=== PATIENT | male | born 1975 | race Caucasian/White ===

== ENCOUNTER 2019-03-25 11:46 | Inpatient (IN) ==
[2019-03-25 12:36] LABS: Basophils # (auto) 0.22 K/uL (0-0.2); Basophils % (auto) 2.1 %; Eosinophils # (auto) 1.61 K/uL (0-0.5); Eosinophils % (auto) 15.2 %; Hematocrit (blood only) 36.1 % (42-52); Immature Granulocytes # (auto) 0.04 K/uL (0.00-0.02); Immature Granulocytes % (auto) 0.4 %; Lymphocytes # (auto) 1.07 K/uL (1.2-3.4); Lymphocytes % (auto) 10.1 %; Mean Corpuscular Hemoglobin 31.6 pg (25-34); Mean Corpuscular Hgb Conc 30.5 g/dL (32-36); Mean Corpuscular Volume 103.7 fL (80-100); Mean Platelet Volume 10.1 fL (7.4-10.4); Monocytes # (auto) 0.61 K/uL (0.11-0.59); Monocytes % (auto) 5.8 %; Neutrophils # (auto) 7.04 K/uL (1.4-6.5); Neutrophils % (auto) 66.4 %; Platelet Count 616 K/uL (130-400); RDW Coefficient of Variation 17.5 % (11.5-14.5); RDW Standard Deviation 64.9 fL (36.4-46.3); Red Blood Count 3.48 M/uL (4.7-6.1); White Blood Count 10.59 K/uL (4.8-10.8)
--- NOTE | 2019-03-25 12:58 | CT Scan Report ---
HEAD CT NONCONTRAST CT DOSE: 537.48 mGy.cm HISTORY: Stroke symptoms following catheterization. TECHNIQUE: Multiaxial CT images of the head were performed without the use of intravenous contrast. A utomated exposure control was utilized for this study. A dose lowering technique was utilized adheri ng to the principles of ALARA. Comparison: None. Findings: The paranasal sinuses and mastoid air cells are clear. The calvarium and skull base are int act. There is no mass, hematoma, or midline shift. The ventricles and sulci are within normal limits. A 9 mm hypodense focus within the periventricular white matter of the left frontal lobe best seen on image 17. This could be due to a focus of demyelination, microvascular ischemic change, or a subacut e to chronic infarct. No acute infarct identified. Impression: 1. No acute intracranial abnormality. 2. A 9 mm hypodense focus within the periventricular white matter of the left frontal lobe. This coul d be due to a focus of demyelination, microvascular ischemic change, or a subacute to chronic infarct . ACT 112: Negative or not required by law. Electronically signed by: Kvng Glass M.D. 03/25/2019 12:56 PM
[2019-03-25 13:14] LABS: Alanine Aminotransferase 113 U/L (12-78); Albumin Globulin Ratio 0.7 (0.9-2); Albumin Level 3.3 gm/dl (3.4-5.0); Alkaline Phosphatase 98 U/L (45-117); Aspartate Aminotransferase 96 U/L (15-37); BUN Creatinine Ratio 4.1 (10-20); Bilirubin,Total 0.4 mg/dl (0.2-1); Blood Urea Nitrogen 64 mg/dl (7-18); Calcium 10.1 mg/dl (8.5-10.1); Carbon Dioxide 26 mmol/L (21-32); Chloride 93 mmol/L (98-107); Est GFR (African American) 3.7; Est GFR (Non-African American) 3.2; Globulin 4.5 gm/dl (2.5-4.0); Glucose 171 mg/dl (70-99); Potassium 4.4 mmol/L (3.5-5.1); Sodium 135 mmol/L (136-145); Total Protein 7.8 gm/dl (6.4-8.2)
--- NOTE | 2019-03-25 13:26 | XRay Report ---
XR femur RT 2V routine CLINICAL HISTORY: Right femur pain. COMPARISON: None FINDINGS: No fracture or osseous lesion within the right femur is noted. Alignment of the right hip and knee is anatomic. There is extensive vascular calcification. IMPRESSION: 1. No osseous abnormality of the right femur. 2. Extensive vascular calcification. ACT 112: Negative or not required by law. Electronically signed by: Eber Miranda M.D. 03/25/2019 1:25 PM
--- NOTE | 2019-03-25 13:49 | Ultrasound Report ---
RIGHT LOWER EXTREMITY VENOUS DOPPLER HISTORY: Right leg pain and swelling. COMPARISON STUDY: None. FINDINGS: There is normal compressibility, flow, and augmentation within the right lower extremity de ep venous system. IMPRESSION: No DVT within the right lower extremity ACT 112: Negative or not required by law. Electronically signed by: Kvng Glass M.D. 03/25/2019 1:48 PM
[2019-03-25] MEDS ORDERED: NovoLIN-R INSULIN PER UNIT CHARGE IV STA (14:10)
--- NOTE | 2019-03-25 15:38 | Electrocardiogram Report ---
Test Reason : Blood Pressure : / mmHG Vent. Rate : 095 BPM Atrial Rate : 095 BPM P-R Int : 130 ms QRS Dur : 090 ms QT Int : 376 ms P-R-T Axes : 064 030 017 degrees QTc Int : 472 ms Normal sinus rhythm Normal ECG No previous ECGs available Confirmed by Dalton Cunningham ([id number]) on 03/25/2019 3:38:06 PM Referred By: REFERRED SELF Confirmed By:Dalton Cunningham
--- NOTE | 2019-03-25 17:41 | Emergency Department Note ---
Entered by Mayra Hoffmann acting as a scribe for History of Present Illness General Chief complaint: Leg Weakness, Bilateral Stated complaint: LEGS DON'T WORK Source: patient History of Present Illness Provider complaint: right leg weakness Onset (ago): week(s) 2 Location: lower extremity and right Radiation: extremity (lower extremity) Maximum Pain Intensity: 10 Quality: + other (right leg weakness) Associated symptoms: + other (Negative rhinorrhea; Negative back pain; Negative abdominal pain; ); no chest pain, no cough and no nausea/vomiting Treatments prior to arrival: none The patient, who is a 44 year old male with a medical history of hypertension, hyperkalemia, and COPD presents to the Emergency Room with complaints of right leg pain that started two weeks ago. The patient explains that he was transferred to [facility] in [place] for a heart Catheterization through the groin. The patient states that after the procedure the patient is unable to fully utilize his right leg. The patient expresses that he was able to walk normally before the procedure. The patient confirms that he has pain in his right leg that radiates throughout the right lower extremity. The patient denies cough, rhinorrhea, chest pain, back pain, abdominal pain, nausea, vomiting, and diarrhea. The patient relays that he has not followed up with an intravenous physician. Upon review of his chart showed that he had pericarditis and some CAD but nothing which was causing EKG changes. Echo also showed a mitral valve vegetation. Home Medications Home Medications Medication Instructions Recorded Confirmed Type albuterol sulfate 90 mcg/actuation 2 puffs INH Q6H PRN #18 gm 03/21/19 03/25/19 Rx aerosol inhaler albuterol sulfate 90 mcg/actuation 2 puffs INH Q6H PRN #18 gm 03/21/19 03/25/19 Rx aerosol inhaler atorvastatin 80 mg tablet 80 mg PO DAILY #90 tab 03/21/19 03/25/19 Rx blood sugar diagnostic #300 ea 03/21/19 03/25/19 Rx cinacalcet 30 mg tablet 30 mg PO DAILY #90 tab 03/21/19 03/25/19 Rx diltiazem HCl 360 mg capsule,24 360 mg PO DAILY #90 cap 03/21/19 03/25/19 Rx hr,extended release docusate sodium 100 mg capsule 100 mg PO DAILY #30 cap 03/21/19 03/25/19 Rx esomeprazole magnesium 40 mg 40 mg PO DAILY #90 cap 03/21/19 03/25/19 Rx capsule,delayed release fluticasone propionate 50 2 sprays INTNAS DAILY #54.6 ml 03/21/19 03/25/19 Rx mcg/actuation nasal spray,suspension furosemide 40 mg tablet 40 mg PO DAILY #90 tab 03/21/19 03/25/19 Rx hydralazine 50 mg tablet 50 mg PO BID #180 tab 03/21/19 03/25/19 Rx insulin aspart U-100 100 unit/mL 50 units SQ BID #15 ml 03/21/19 03/25/19 Rx (3 mL) subcutaneous pen lancets 33 gauge #300 ea 03/21/19 03/25/19 Rx levothyroxine 125 mcg capsule 125 mcg PO DAILY #90 cap 03/21/19 03/25/19 Rx pen needle, diabetic 32 gauge x #200 ea 03/21/19 03/25/19 Rx 1/" vitamin B comp and C no.3 15 mg-10 1 cap PO DAILY #30 cap 03/21/19 03/25/19 Rx mg-50 mg-5 mg-300 mg capsule zolpidem 5 mg tablet 5 mg PO HS #90 tab 03/21/19 03/25/19 Rx cephalexin 500 mg PO DIRECTED 03/25/19 03/25/19 History trazodone 50 mg PO HS PRN 03/25/19 03/25/19 History Allergies Allergy/AdvReac Type Severity Reaction Status Date / Time acetaminophen [From Percocet] Allergy Verified 03/25/19 13:01 codeine Allergy Verified 03/25/19 13:01 gemfibrozil [From Lopid] Allergy Verified 03/25/19 13:01 ibuprofen Allergy Verified 03/25/19 13:01 isosorbide Allergy Verified 03/25/19 13:01 lisinopril Allergy Verified 03/25/19 13:01 oxycodone [From Percocet] Allergy Verified 03/25/19 13:01 Penicillins Allergy Unknown Unverified 03/25/19 13:01 Past Med/Surg History Medical History Acute idiopathic pericarditis Charcot foot due to diabetes mellitus COPD (chronic obstructive pulmonary disease) Diabetic neuropathy Dyslipidemia ESRD (end stage renal disease) on dialysis GERD (gastroesophageal reflux disease) Hyperkalemia Hyperparathyroidism Hypertension Hypothyroidism Peritoneal dialysis status Type 2 diabetes mellitus Surgical History History of cardiac cath Injection of surface of eye Retinal detachment Family History Father Alcohol abuse Diabetes Mother Diabetes Heart disease Social History Preferred Language: Qatari Communication Ability: Effective Seed Pelleter Required: No Beliefs That Will Affect Care: None Current Living Situation: Significant Other Other Information That Helps Us Care for You: No Feels Safe at Home: Yes Safety Concerns: Feels Safe At This Time Smoking Status: Never smoker Hx Alcohol Use: No Hx Substance Use: No Review of Systems See HPI for pertinent positives & negatives. and A total of 10 systems reviewed and were otherwise negative Physical Exam Vital Signs Vital Signs - 24 hr 03/25/19 11:50 03/25/19 12:50 03/25/19 14:00 Temperature 36.8 C Temperature Source Oral Pulse Rate 77 Pulse Rate [Apical] 93 H 90 Pulse Rhythm Regular Pulse Rhythm [Apical] Regular Regular Pulse Strength Normal Pulse Strength [Apical] Normal Respiratory Rate 16 17 18 Respiratory Effort / Characteristics Non-Labored Non-Labored Spontaneous Non-Labored Spontaneous Respiratory Depth Normal Normal Normal Respiratory Pattern Regular Regular Regular Blood Pressure 98/63 L Blood Pressure [Right Arm] 91/63 L 95/76 L Blood Pressure Mean 74 Blood Pressure Mean [Right Arm] 72 82 Blood Pressure Position Sitting Pulse Oximetry 100 99 98 Oxygen Delivery Method Room Air Room Air Room Air Sepsis Recent Fever Within 48 Hours No Sepsis Action Taken by Nursing No Action Required 03/25/19 16:03 Temperature Temperature Source Pulse Rate Pulse Rate [Apical] 90 Pulse Rhythm Pulse Rhythm [Apical] Pulse Strength Pulse Strength [Apical] Respiratory Rate 18 Respiratory Effort / Characteristics Respiratory Depth Respiratory Pattern Blood Pressure Blood Pressure [Right Arm] 94/57 L Blood Pressure Mean Blood Pressure Mean [Right Arm] 69 Blood Pressure Position Pulse Oximetry 95 Oxygen Delivery Method Sepsis Recent Fever Within 48 Hours Sepsis Action Taken by Nursing GENERAL: alert, well appearing, well nourished, no distress, non-toxic, sitting up in bed wearing hospital gown EYE EXAM: normal conjunctiva OROPHARYNX: no exudate, no erythema, lips, buccal mucosa, and tongue normal and mucous membranes are moist NECK: supple, no nuchal rigidity, no adenopathy, non-tender LUNGS: Clear to auscultation. Normal chest wall mechanics HEART: no murmurs, S1 normal and S2 normal ABDOMEN: abdomen soft, non-tender, normo-active bowel sounds, no masses, no rebound or guarding. PD catheter in left lower quadrant. BACK: Back is symmetrical on inspection and there is no deformity, no midline tenderness, no CVA tenderness. SKIN: no rashes and no bruising UPPER EXTREMITIES: upper extremities are grossly normal. LOWER EXTREMITIES: No pitting edema. Flexion and extension of the hips bilaterally and left lower extremity. Minimal flexion and extension of the right knee 2/5. Right ankle and EHL 1/5. No petallar reflexes. NEURO EXAM: Normal sensorium, cranial nerves II-XII grossly intact, normal speech, no gross weakness of arms, no gross weakness of legs. Course Course ED COURSE: Vital signs were reviewed and showed hypotensive The patients medical record was reviewed The above diagnostic studies were performed and reviewed. ED treatments and interventions as stated above. 1203: The patient was evaluated in room C1. A complete history and physical examination was performed. 1401: Upon reevaluation, the patient is resting.I discussed my findings with the patient and he understands and agrees with the treatment plan. 1407: I reviewed the patient's case with Dr. Bernal, [facility] Hospitalist. He will evaluate the patient for further management. Based on the patients age, coexisting illnesses, exam and lab findings the decision to treat as an inpatient was made. The patient remained stable while under my care. The patient will be evaluated for further management. Consultations Consultation #1: I reviewed the patient's case with Dr. Bernal, [facility] Hospitalist. He will evaluate the patient for further management. Time: 14:10 Administered Medications Discontinued Medications Insulin Human Regular (Novolin R U-100 Per Unit) 5 units IV NOW STA Stop: 03/25/19 14:11 Last Admin: 03/25/19 14:21 Dose: Not Given Documented by: [id number] Medical Decision Making Differential Diagnosis Differential Diagnosis includes but is not limited to ischemic Stroke, hemorrhagic stroke, bells palsy, mass, neoplasm, migraine headache, seizure, subarachnoid hemorrhage, TIA, and transient global amnesia. Medical Records Attestation: I reviewed the patient's medical records. Home Medications Current Medication List: was personally reviewed by me Laboratory Data Attestation: I reviewed the patient's lab results. Result diagrams: 03/25/19 12:30 03/25/19 12:30 Lab Results 03/25/19 03/25/19 03/25/19 Range/Units 12:30 12:30 14:17 WBC 10.59 (4.8-10.8) K/uL RBC 3.48 L (4.7-6.1) M/uL Hgb 11.0 L (14.0-18.0) g/dL Hct 36.1 L (42-52) % MCV 103.7 H (80-100) fL MCH 31.6 (25-34) pg MCHC 30.5 L (32-36) g/dL RDW Std Deviation 64.9 H (36.4-46.3) fL RDW Coeff of Geraldine 17.5 H (11.5-14.5) % Plt Count 616 H (130-400) K/uL MPV 10.1 (7.4-10.4) fL Immature Gran % (Auto) 0.4 % Neut % (Auto) 66.4 % Lymph % (Auto) 10.1 % [place] % (Auto) 5.8 % Eos % (Auto) 15.2 % Baso % (Auto) 2.1 % Immature Gran # (Auto) 0.04 H (0.00-0.02) K/uL Neut # (Auto) 7.04 H (1.4-6.5) K/uL Lymph # (Auto) 1.07 L (1.2-3.4) K/uL [place] # (Auto) 0.61 H (0.11-0.59) K/uL Eos # (Auto) 1.61 H (0-0.5) K/uL Baso # (Auto) 0.22 H (0-0.2) K/uL Sodium 135 L (136-145) mmol/L Potassium 4.4 (3.5-5.1) mmol/L Chloride 93 L (98-107) mmol/L Carbon Dioxide 26 (21-32) mmol/L Anion Gap 16.0 H (3-11) BUN 64 H (7-18) mg/dl Creatinine 15.80 H* (0.6-1.4) mg/dl Est Cr Clr Drug Dosing Not Reportable Est GFR ( Amer) 3.7 Est GFR (Non-Af Amer) 3.2 BUN/Creatinine Ratio 4.1 L (10-20) Glucose 171 H (70-99) mg/dl POC Glucose 202 H (70-99) Calcium 10.1 (8.5-10.1) mg/dl Total Bilirubin 0.4 (0.2-1) mg/dl AST 96 H (15-37) U/L ALT 113 H (12-78) U/L Alkaline Phosphatase 98 (45-117) U/L Total Protein 7.8 (6.4-8.2) gm/dl Albumin 3.3 L (3.4-5.0) gm/dl Globulin 4.5 H (2.5-4.0) gm/dl Albumin/Globulin Ratio 0.7 L (0.9-2) Imaging Data Radiologist's Impression: Radiology results as stated below per my review and the radiologist's interpretation: XR femur RT 2V routine CLINICAL HISTORY: Right femur pain. COMPARISON: None FINDINGS: No fracture or osseous lesion within the right femur is noted. Alignment of the right hip and knee is anatomic. There is extensive vascular calcification. IMPRESSION: 1. No osseous abnormality of the right femur. 2. Extensive vascular calcification. ACT 112: Negative or not required by law. Electronically signed by: Eber Miranda M.D. 03/25/2019 1:25 PM RIGHT LOWER EXTREMITY VENOUS DOPPLER HISTORY: Right leg pain and swelling. COMPARISON STUDY: None. FINDINGS: There is normal compressibility, flow, and augmentation within the right lower extremity deep venous system. IMPRESSION: No DVT within the right lower extremity ACT 112: Negative or not required by law. Electronically signed by: Kvng Glass M.D. 03/25/2019 1:[address] NO NCONTRAST CT DOSE: 537.48 mGy.cm HISTORY: Stroke symptoms following catheterization. TECHNIQUE: Multiaxial CT images of the head were performed without the use of intravenous contrast. Automated exposure control was utilized for this study. A dose lowering technique was utilized adhering to the principles of ALARA. Comparison: None. Findings: The paranasal sinuses and mastoid air cells are clear. The calvarium and skull base are intact. There is no mass, hematoma, or midline shift. The ventricles and sulci are within normal limits. A 9 mm hypodense focus within the periventricular white matter of the left frontal lobe best seen on image 17. This could be due to a focus of demyelination, microvascular ischemic change, or a subacute to chronic infarct. No acute infarct identified. Impression: 1. No acute intracranial abnormality. 2. A 9 mm hypodense focus within the periventricular white matter of the left frontal lobe. This could be due to a focus of demyelination, microvascular ischemic change, or a subacute to chronic infarct. ACT 112: Negative or not required by law. Electronically signed by: Kvng Glass M.D. 03/25/2019 12:56 PM ECG Data Attestation: I personally reviewed and interpreted this ECG as follows: Blood Pressure Blood Pressure Findings: Low blood pressure Blood Pressure Disposition: further management by hospitalist MDM Narrative The patient, who is a 44 year old male with a medical history of hypertension, CKD on peritoneal dialysis, and COPD presents to the Emergency Room with complaints of right leg pain that started two weeks ago. IV was established blood work was obtained and showed a mild anemia at 11,000. No significant leukocytosis. INR unremarkable. BMP with creatinine of 15. Potassium and sodium are appropriate. Mild transaminitis at 113 and 96. Patient had no abdominal pain. All of his pain was located in the right groin where he still has a dressing placed from the previous catheterization. Does have weakness in the right lower extremity. Previous records were reviewed from [facility] which showed a mitral valve vegetation but reported negative cultures and she he was discharged. Patient notes he has had weakness in his right lower extremity since the catheterization. Question if this was embolic due to the mitral valve vegetation. CT head did show a left frontal infarct. With the weakness and questionable stroke did discuss case with the hospitalist. Duplex was negative. Patient was updated bedside. Impression & Plan CVA (cerebral vascular accident), Peritoneal dialysis status, Transaminitis, Mitral valve disorder Discharge Plan Visit Data Chief Complaint: Leg Weakness, Bilateral Stated Complaint: LEGS DON'T WORK ED Provider: Yung Bhandari Discharge Problem: CVA (cerebral vascular accident), Peritoneal dialysis status, Transaminitis, Mitral valve disorder Patient Disposition: Being Evaluated by Hospitalist Forms Stand Alone Forms: My [facility] Prescriptions Prescriptions: No Action albuterol sulfate 90 mcg/actuation HFA aerosol inhaler 2 puffs INH Q6H PRN (Reason: shortness of breath or wheezing) Qty: 18 RF: 11 fluticasone propionate [Flonase Allergy Relief] 50 mcg/actuation spray,suspension 2 sprays INTNAS DAILY Qty: 54.6 RF: 3 levothyroxine 125 mcg capsule 125 mcg PO DAILY Qty: 90 RF: 3 (DME) OneTouch Ultra Blue Test Strip strip See Rx Instructions .ROUTE .MEDSUPPLY Qty: 300 RF: 3 (DME) lancets [OneTouch Delica Plus Lancet] 33 gauge misc See Rx Instructions .ROUTE .MEDSUPPLY Qty: 300 RF: 3 diltiazem HCl 360 mg capsule,extended release 24 hr 360 mg PO DAILY Qty: 90 RF: 3 zolpidem 5 mg tablet 5 mg PO HS Qty: 90 RF: 3 Novolog Flexpen U-100 Insulin 100 unit/mL (3 mL) insulin pen 50 units SQ BID Qty: 15 RF: 11 furosemide 40 mg tablet 40 mg PO DAILY Qty: 90 RF: 3 cinacalcet [Sensipar] 30 mg tablet 30 mg PO DAILY Qty: 90 RF: 3 esomeprazole magnesium 40 mg capsule,delayed release(DR/EC) 40 mg PO DAILY Qty: 90 RF: 3 hydralazine 50 mg tablet 50 mg PO BID Qty: 180 RF: 3 atorvastatin 80 mg tablet 80 mg PO DAILY Qty: 90 RF: 3 B Complex Plus Vitamin C 64-42-98-5-300 mg capsule 1 cap PO DAILY Qty: 30 RF: 0 (DME) pen needle, diabetic [BD Ultra-Fine Micro Pen Needle] 32 gauge x 1/4" needle See Rx Instructions .ROUTE .MEDSUPPLY Qty: 200 RF: 3 albuterol sulfate [Ventolin HFA] 90 mcg/actuation HFA aerosol inhaler 2 puffs INH Q6H PRN (Reason: shortness of breath or wheezing) Qty: 18 RF: 11 docusate sodium [Colace] 100 mg capsule 100 mg PO DAILY Qty: 30 RF: 0 trazodone 50 mg Tablet 50 mg PO HS PRN (Reason: Sleep) RF: 0 cephalexin 500 mg capsule 500 mg PO DIRECTED RF: 0 Referrals Referrals: Hardy Au MD [Primary Care Provider] - Discharge Problem: CVA (cerebral vascular accident) Qualifiers: CVA mechanism: unspecified Qualified Code(s): I63.9 - Cerebral infarction, unspecified The scribe's documentation has been prepared under my direction and personally reviewed by me in its entirety. I confirm that the note above accurately reflects all work, treatment, procedures, and medical decision making performed by me.
[2019-03-25 17:51] LABS: INR 1.1 (0.9-1.1); Prothrombin Time 11.6 Seconds (9.0-12.0)
--- NOTE | 2019-03-25 18:03 | History & Physical Report ---
Date of Service March 25, 2019 Assessment & Plan (1) CVA (cerebral vascular accident): Admit to PCU on telemetry for acute stroke. Acute stroke was discovered on MRI of the brain; Case discussed with from stroke [facility]. His recommendation is as to follow: Follow the stroke pathway without TPA. Patient is outside of the TPA window. Clopidogrel 300 mg loading dose followed by 75 mg thereafter. Neurology consult in a.m. Monitor vital signs every 4 hours Monitor electrolytes and replenish. VIVIANE pending Further investigation in regard of septic versus autoimmune origin. Patient reports had having pericarditis of autoimmune origin. Continue atorvastatin 80 mg p.o. daily. CTA of the head and neck following peritoneal dialysis and clearing up the contrast. DVT prophylaxis Heparin 5000 units subcu every 12 hours. Started autoimmune work-up. Full code Present on Admission?: Yes (2) ESRD (end stage renal disease) on dialysis: Nephrology consult pending. Continue peritoneal dialysis as directed. Replenish electrolytes and monitor daily. Present on Admission?: Yes (3) Mitral valve disorder: Echocardiogram from [facility] significant for possible mitral valve vegetation. Recommended VIVIANE. Placed order for VIVIANE, consult cardiology upon result. Started autoimmune work-up because it is not clear if mitral valve vegetation is septic or caused by autoimmune mechanism. Ordered blood culturesx2 Present on Admission?: Yes (4) Hypertension: Blood pressure is on the lower side. Hold hydralazine 50 mg p.o. twice daily. Hold diltiazem 360 mg daily while blood pressure is at the lower side. Present on Admission?: Yes (5) COPD (chronic obstructive pulmonary disease): Stable ,continue albuterol inhaler 2 puffs every 6 hours as needed, fluticasone propionate nasal spray 2 sprays daily Present on Admission?: Yes (6) Dyslipidemia: Lipid panel pending. Continue atorvastatin 80 mg p.o. daily. Present on Admission?: Yes (7) Hypothyroidism: Continue levothyroxine 125 MCG's p.o. daily Present on Admission?: Yes (8) Type 2 diabetes mellitus: A1c pending. Accu-Cheks before meals and at bedtime. Continue sliding scale insulin and glycemic control per pharmacy. (9) Diabetic neuropathy: As the above Present on Admission?: Yes History of Present Illness Chief Complaint: Right leg weakness Primary Care Provider: Hardy Au MD Patient is a 44 years old male with past medical history of end-stage renal disease on peritoneal dialysis, GERD, acute idiopathic pericarditis, hypertension, COPD, dyslipidemia, hyperparathyroidism, diabetes mellitus type 2, diabetic neuropathy who presents to the emergency room with a complaint of right leg weakness that started after March 09 when patient was transferred to [facility] for a heart catheterization through the groin. The patient states that after the procedure he was unable to fully use his right leg. The patient expresses that he was able to walk normally before the procedure. The patient confirms that he has pain in his right leg and that pain radiates through the right lower extremity. Patient reports that he is feeling right now better than before and movements of his right lower extremities are not changed in the past 3 days. Per patient his last known bili being well was before March 09, 2019 when patient had catheterization of his heart through his right lower extremity. The patient denies fever, chills, chest pain, shortness of breath, abdominal pain, frequency, urgency, syncope or near syncope. Patient has end-stage renal disease and he does peritoneal dialysis 4 times a day for the past 4 years. EKG is reviewed which shows normal sinus rhythm. Echocardiogram from [facility] done March 08, 2019 shows LV ejection fraction of 60 to 64%. No LV segmental wall motion abnormalities. The right ventricular cavity is mildly dilated. The right ventricular systolic function is moderately reduced. There is a large 3 x 1 cm mobile echodensity attached to the mitral valve. It has the appearance of MAC but it is protuberant, mobile and there is severe mitral regurgitation present. This constellation could represent a vegetation. Recommended blood culture and a VIVIANE EEG to assess further. Moderate pulmonary hypertension is present. Outside cardiac catheterization on March 11, 2019 shows the first diagonal has 70% stenosis, and remaining coronaries had mild luminal irregularities. The LVEDP was 22 which is moderately elevated. Head CT shows no acute intracranial abnormality. A 9 mm hypodense focus within the periventricular white matter of the left frontal lobe. This could be due to a focus of them myelination, microvascular ischemic change, or a subacute to chronic infarct. Venous Doppler of the lower extremity shows no DVT within the right lower extremity. Decision was made to admit patient to PCU on telemetry for further evaluation of right lower extremity weakness, acute CVA, and possibly mitral valve vegetation versus autoimmune. Allergies Allergy/AdvReac Type Severity Reaction Status Date / Time acetaminophen [From Percocet] Allergy Verified 03/25/19 13:01 codeine Allergy Verified 03/25/19 13:01 gemfibrozil [From Lopid] Allergy Verified 03/25/19 13:01 ibuprofen Allergy Verified 03/25/19 13:01 isosorbide Allergy Verified 03/25/19 13:01 lisinopril Allergy Verified 03/25/19 13:01 oxycodone [From Percocet] Allergy Verified 03/25/19 13:01 Penicillins Allergy Unknown Unverified 03/25/19 13:01 Home Medications Home Medications Medication Instructions Recorded Confirmed Type albuterol sulfate 90 mcg/actuation 2 puffs INH Q6H PRN #18 gm 03/21/19 03/25/19 Rx aerosol inhaler albuterol sulfate 90 mcg/actuation 2 puffs INH Q6H PRN #18 gm 03/21/19 03/25/19 Rx aerosol inhaler atorvastatin 80 mg tablet 80 mg PO DAILY #90 tab 03/21/19 03/25/19 Rx blood sugar diagnostic #300 ea 03/21/19 03/25/19 Rx cinacalcet 30 mg tablet 30 mg PO DAILY #90 tab 03/21/19 03/25/19 Rx diltiazem HCl 360 mg capsule,24 360 mg PO DAILY #90 cap 03/21/19 03/25/19 Rx hr,extended release docusate sodium 100 mg capsule 100 mg PO DAILY #30 cap 03/21/19 03/25/19 Rx esomeprazole magnesium 40 mg 40 mg PO DAILY #90 cap 03/21/19 03/25/19 Rx capsule,delayed release fluticasone propionate 50 2 sprays INTNAS DAILY #54.6 ml 03/21/19 03/25/19 Rx mcg/actuation nasal spray,suspension furosemide 40 mg tablet 40 mg PO DAILY #90 tab 03/21/19 03/25/19 Rx hydralazine 50 mg tablet 50 mg PO BID #180 tab 03/21/19 03/25/19 Rx insulin aspart U-100 100 unit/mL 50 units SQ BID #15 ml 03/21/19 03/25/19 Rx (3 mL) subcutaneous pen lancets 33 gauge #300 ea 03/21/19 03/25/19 Rx levothyroxine 125 mcg capsule 125 mcg PO DAILY #90 cap 03/21/19 03/25/19 Rx pen needle, diabetic 32 gauge x #200 ea 03/21/19 03/25/19 Rx /" vitamin B comp and C no.3 15 mg-10 1 cap PO DAILY #30 cap 03/21/19 03/25/19 Rx mg-50 mg-5 mg-300 mg capsule zolpidem 5 mg tablet 5 mg PO HS #90 tab 03/21/19 03/25/19 Rx cephalexin 500 mg PO DIRECTED 03/25/19 03/25/19 History trazodone 50 mg PO HS PRN 03/25/19 03/25/19 History Past Med/Surg History Medical History Acute idiopathic pericarditis Charcot foot due to diabetes mellitus COPD (chronic obstructive pulmonary disease) Diabetic neuropathy Dyslipidemia ESRD (end stage renal disease) on dialysis GERD (gastroesophageal reflux disease) Hyperkalemia Hyperparathyroidism Hypertension Hypothyroidism Peritoneal dialysis status Type 2 diabetes mellitus Surgical History History of cardiac cath Injection of surface of eye Retinal detachment Family History Father Alcohol abuse Diabetes Mother Diabetes Heart disease Social History Preferred Language: Afghan Communication Ability: Effective Computer Equipment Repairer Required: No Beliefs That Will Affect Care: None Current Living Situation: Significant Other Other Information That Helps Us Care for You: No Feels Safe at Home: Yes Safety Concerns: Feels Safe At This Time Smoking Status: Never smoker Hx Alcohol Use: No Hx Substance Use: No Review of Systems Review of Systems: All systems reviewed & are unremarkable except as noted in HPI & below Physical Exam Constitutional: WD/WN, vitals as above well developed Eyes: PERRL, conjunctivae normal, anicteric sclerae ENMT: external ear and nose normal, oropharynx normal Neck: trachea midline, no thyromegaly Respiratory: normal respiratory effort, lungs clear to auscultation Cardiovascular: Rate/Rhythm: regular rhythm Heart Sounds: normal S1, normal S2 and + murmur Palpation: + palpable S3 Gastrointestinal (Abdomen): normal bowel sounds, soft, nontender, no hepatosplenomegaly Musculoskeletal: no cyanosis or clubbing, extremities motor strength 5/5 Skin: no rashes, warm and dry Neurologic: Right lower extremity strength 3 of 5 in comparison to the left. Patient able to move the toes. Sensation decreased. Psychiatric: A+Ox3, euthymic affect Lymphatic: no cervical or axillary lymphadenopathy Results & Data Vital Signs (Past 12 Hours) Vital Signs Temp Pulse Pulse Resp BP BP Pulse Ox 03/25/19 16:03 90 18 94/57 L 95 03/25/19 14:00 90 18 95/76 L 98 03/25/19 12:50 93 H 17 91/63 L 99 03/25/19 11:50 36.8 C 77 16 98/63 L 100 Code Status & VTE Plan Code Status Full code VTE Prophylaxis Plan VTE Prophylaxis will be ordered: Yes PG Care Time/CCT Total # of Minutes Spent Total Time Spent with Patient: Total time spent is greater than 50% in coordination of care (as documented) at patient's floor/unit and/or counseling patient: (1) CVA (cerebral vascular accident) CVA mechanism: unspecified Qualified Code(s): I63.9 - Cerebral infarction, unspecified
[2019-03-25] MEDS ORDERED: POLYETHYLENE (MIRALAX) 17 GM PACK PO PRN (19:09)
[2019-03-25] MEDS ORDERED: PHARMACIST DISCHARGE MED REC CONSULT PRN (19:09)
[2019-03-25] MEDS ORDERED: GLUCAGON FOR INJ 1 MG VIAL SQ PRN (19:09)
[2019-03-25] MEDS ORDERED: TRAZODONE HCL 50 MG TAB PO PRN (19:09)
[2019-03-25] MEDS ORDERED: GLUCOSE 40% GEL 15 GM TUBE PO PRN (19:09)
[2019-03-25] MEDS ORDERED: ALUMINUM/MAGNESIUM SUSP 30 ML UDC PO PRN (19:09)
[2019-03-25] MEDS ORDERED: MAGNESIUM HYDROXIDE SUSP 30 ML UDC PO PRN (19:09)
[2019-03-25] MEDS ORDERED: DEXTROSE 50% 50 ML SYRINGE IV PRN (19:09)
[2019-03-25] MEDS ORDERED: ALBUTEROL HFA 8 GM INHALER INH PRN (19:09)
[2019-03-25] MEDS ORDERED: CARBOHYDRATES FOR HYPOGLYCEMIA PO PRN (19:09)
[2019-03-25] MEDS ORDERED: GLUCOSE 10 TABS/TUBE PO PRN (19:09)
[2019-03-25] MEDS ORDERED: dilTIAZem HCL 180 MG CAPCR PO STA (19:28)
[2019-03-25] MEDS ORDERED: PHARMACY GLYCEMIC MGMT CONSULT PRN (19:31)
[2019-03-25] MEDS ORDERED: SODIUM CHLORIDE 0.9% 1000ML 1,000 ML IV SCH (20:00)
[2019-03-25] MEDS ORDERED: CLOPIDOGREL BISULFATE 75 MG TAB PO SCH (20:00)
[2019-03-25 20:06] LABS: INR 1.2 (0.9-1.1); Partial Thromboplastin Time 27.3 Seconds (21.0-31.0); Prothrombin Time 11.9 Seconds (9.0-12.0)
--- NOTE | 2019-03-25 20:56 | Magnetic Resonance Report ---
MR brain wo con CLINICAL HISTORY: 44 years-old Male presenting with subacute CVA, abnormal CT head, unable to walk af ter cardiac catheterization. TECHNIQUE: Multisequence, multiplanar MR imaging of the brain was performed without the use of intrav enous contrast. IV contrast: None. COMPARISON: CT head from earlier today. FINDINGS: Localizer images: Unremarkable. Bone marrow signal intensity within the calvarium within normal limits. Normal midline sagittal structures. Ventricles and sulci normal in size. No mass effect or midline sh ift. Few small foci of restricted diffusion in the periventricular white matter of the right frontal and left parietal lobes. No hemorrhage. Associated FLAIR hyperintensity of these regions. No extra-axial fluid collection. T2 skull base flow voids preserved. IMPRESSION: 1. Few small acute infarcts in the periventricular white matter of the right frontal and left pariet al lobes most consistent with embolic infarcts at least 6 to 12 hours old. The report will be called/faxed according to standard departmental protocol for a critical finding. ACT 112: Negative or not required by law. Electronically signed by: Maury Schroeder M.D. 03/25/2019 8:54 PM
[2019-03-25] MEDS ORDERED: HydrALAZINE TAB 50 MG TAB PO SCH (21:00)
[2019-03-25] MEDS: INSULIN ASPART 100 UNITS/ML 3 ML PEN SC SCH (21:34)
[2019-03-25] MEDS: PANTOprazole 40 MG TAB PO SCH (21:39)
[2019-03-25] MEDS: FLUTICASONE PROPIONATE NA SPR 16 GM BTL SCH (21:40)
[2019-03-25] MEDS ORDERED: CLOPIDOGREL BISULFATE 300 MG TAB PO ONE (21:45)
[2019-03-25] MEDS ORDERED: INSULIN DETEMIR FLEXPEN/FLEX TOUCH 100 UNITS/ML 3ML SC STA (21:58)
[2019-03-25] MEDS: MoRPHine SULFATE 2 MG/ML CARP IV PRN (22:16)
[2019-03-25] MEDS: ZOLPIDEM TARTRATE 5 MG TAB PO SCH (22:17)
[2019-03-26] MEDS: INSULIN ASPART 100 UNITS/ML 3 ML PEN SC SCH ×6 (00:45→22:35)
[2019-03-26 05:51] LABS: Estimated Average Glucose 206 mg/dl; Hemoglobin A1C 8.8 % (4.5-5.6)
[2019-03-26] MEDS: LEVOTHYROXINE SODIUM 125 MCG TABLET PO SCH (06:09)
[2019-03-26 06:22] LABS: Basophils # (auto) 0.09 K/uL (0-0.2); Basophils % (auto) 1.1 %; Eosinophils # (auto) 1.94 K/uL (0-0.5); Eosinophils % (auto) 23.9 %; Hematocrit (blood only) 32.7 % (42-52); Hemoglobin 10.2 g/dL (14.0-18.0); Immature Granulocytes # (auto) 0.02 K/uL (0.00-0.02); Immature Granulocytes % (auto) 0.2 %; Lymphocytes # (auto) 1.59 K/uL (1.2-3.4); Lymphocytes % (auto) 19.6 %; Mean Corpuscular Hemoglobin 31.6 pg (25-34); Mean Corpuscular Hgb Conc 31.2 g/dL (32-36); Mean Corpuscular Volume 101.2 fL (80-100); Mean Platelet Volume 10.1 fL (7.4-10.4); Monocytes % (auto) 6.2 %; Neutrophils # (auto) 3.97 K/uL (1.4-6.5); Platelet Count 503 K/uL (130-400); RDW Coefficient of Variation 17.3 % (11.5-14.5); RDW Standard Deviation 62.8 fL (36.4-46.3); Red Blood Count 3.23 M/uL (4.7-6.1); White Blood Count 8.11 K/uL (4.8-10.8)
[2019-03-26 06:58] LABS: BUN Creatinine Ratio 4.7 (10-20); Calcium 8.8 mg/dl (8.5-10.1); Creatinine Clr Calc Pharmacy 6.3 ml/min; Est GFR (African American) 3.8; Est GFR (Non-African American) 3.2; Potassium 4.5 mmol/L (3.5-5.1)
[2019-03-26] MEDS ORDERED: OPTIRAY 320 125ml IV PRN (07:16)
--- NOTE | 2019-03-26 08:00 | CT Scan Report ---
HEAD & NECK CTA HISTORY: acute embolic CVA TECHNIQUE: Multiaxial CT images of the head were performed following the intravenous administration o f contrast to evaluate the major cerebral vessels. Multiaxial CT images of the neck were also perform ed following the intravenous administration of contrast to evaluate the major cervical vessels. Maxim um intensity projection images were also obtained. A dose lowering technique was utilized adhering to the principles of ALARA. COMPARISON: Brain MRI 03/25/2019. FINDINGS: Visualized intracranial internal carotid arteries, distal vertebral arteries, and basilar artery are widely patent. There is no significant stenosis, occlusion, or aneurysm seen within the bilateral TASNEEM s, MCAs, or rn long term care. Minimal calcified plaque within the bilateral carotid siphons. The major dural veno us sinuses are patent. The aortic arch and proximal great vessels are widely patent. There is no significant stenosis, occ lusion, or dissection identified within the bilateral common carotid, internal carotid, or vertebral arteries. Minimal calcified plaque within the left carotid bulb. A single mildly enlarged superior me diastinal lymph node best seen on image 71 measuring 11 mm. IMPRESSION: 1. No significant stenosis, occlusion, or aneurysm within the [place]. 2. No significant stenosis, occlusion, or dissection identified within the carotid or vertebral arter ies. 3. A single mildly enlarged superior mediastinal lymph node measuring 11 mm. This is of uncertain cli nical significance. Follow-up chest CT in 3 to 6 months is recommended to evaluate for stability. ACT 112: Negative or not required by law. Electronically signed by: Kvng Glass M.D. 03/26/2019 7:59 AM
--- NOTE | 2019-03-26 08:00 | CT Scan Report ---
HEAD & NECK CTA HISTORY: acute embolic CVA TECHNIQUE: Multiaxial CT images of the head were performed following the intravenous administration o f contrast to evaluate the major cerebral vessels. Multiaxial CT images of the neck were also perform ed following the intravenous administration of contrast to evaluate the major cervical vessels. Maxim um intensity projection images were also obtained. A dose lowering technique was utilized adhering to the principles of ALARA. COMPARISON: Brain MRI 03/25/2019. FINDINGS: Visualized intracranial internal carotid arteries, distal vertebral arteries, and basilar artery are widely patent. There is no significant stenosis, occlusion, or aneurysm seen within the bilateral TASNEEM s, MCAs, or english division chair. Minimal calcified plaque within the bilateral carotid siphons. The major dural veno us sinuses are patent. The aortic arch and proximal great vessels are widely patent. There is no significant stenosis, occ lusion, or dissection identified within the bilateral common carotid, internal carotid, or vertebral arteries. Minimal calcified plaque within the left carotid bulb. A single mildly enlarged superior me diastinal lymph node best seen on image 71 measuring 11 mm. IMPRESSION: 1. No significant stenosis, occlusion, or aneurysm within the [place]. 2. No significant stenosis, occlusion, or dissection identified within the carotid or vertebral arter ies. 3. A single mildly enlarged superior mediastinal lymph node measuring 11 mm. This is of uncertain cli nical significance. Follow-up chest CT in 3 to 6 months is recommended to evaluate for stability. ACT 112: Negative or not required by law. Electronically signed by: Kvng Glass M.D. 03/26/2019 7:59 AM
[2019-03-26] MEDS: ATORVASTATIN 40 MG TAB PO SCH (08:19)
[2019-03-26] MEDS: PANTOprazole 40 MG TAB PO SCH (08:21)
[2019-03-26] MEDS: CLOPIDOGREL BISULFATE 75 MG TAB PO SCH (08:21)
[2019-03-26] MEDS: VITAMIN B COMPLEX TAB PO SCH (08:21)
[2019-03-26] MEDS: FLUTICASONE PROPIONATE NA SPR 16 GM BTL SCH (08:23)
[2019-03-26] MEDS ORDERED: INSULIN DETEMIR FLEXPEN/FLEX TOUCH 100 UNITS/ML 3ML SC SCH ×2 (09:00)
[2019-03-26] MEDS ORDERED: dilTIAZem HCL 180 MG CAPCR PO SCH (09:00)
[2019-03-26] MEDS: DOCUSATE SODIUM 100 MG CAP PO SCH (09:24)
--- NOTE | 2019-03-26 13:13 | Pharmacy Report ---
Pharmacy Glycemic Short Note 2 - Date of Service March 26, 2019 - Glycemic Short BSG Results (Last 24 hours): 03/25/19 03/25/19 03/25/19 12:30 14:17 20:06 Glucose 171 H POC Glucose 202 H 231 H 03/26/19 03/26/19 03/26/19 00:43 04:25 06:03 Glucose 123 H POC Glucose 188 H 127 H 03/26/19 03/26/19 07:35 11:28 Glucose POC Glucose 142 H 163 H OUTPATIENT ANTIDIABETIC REGIMEN: * Levemir 10 units SQ HS * Novolog SQ BID w/ meals and per sliding scale * A1c = 8.8% however pt is ESRD on HD, thus RBC lifespan affected and result is less reliable ASSESSMENT: * Type 2 diabetic admitted for CVA * Patient started on basal / bolus SQ regimen last evening using weight and moderate stress level * Fasting BSG 142 this AM w/ 17 units Levemir on board * Will continue basal regimen this AM per scale due to ongoing NPO status * Novolog CF has performed well - continue the same PLAN FOR INPATIENT GLYCEMIC CONTROL: * Basal insulin * Lantus SQ BID per scale * 0 units if BSG less than 110 * 8 units if BSG 110-180 * 12 units if BSG above 180 * Bolus insulin * NovoLog per scale Q 4 hrs * Goal Range: Low 110 mg/dL - High 140 mg/dL * Correction Factor: 25 mg/dL/unit * Nutritional / Prandial insulin per carb ratio of 1 unit per 8 grams CHO consumed PLAN FOR DISCHARGE: * to be determined
--- NOTE | 2019-03-26 13:37 | Cardiology Consultation ---
Date of Consultation March 26, 2019 Assessment & Plan (1) CVA (cerebral vascular accident): (2) Mitral valve disorder: Transesophageal echocardiogram is recommended for further assessment of cardiac source of embolism. By remote connection to the [facility] computer system, I reviewed the images of his outside transthoracic echocardiogram study at [facility] performed 03/08/2019 independently. The differential diagnosis includes vegetation, perhaps healed vegetation, or calcific mitral valve disease in the setting of renal insufficiency. The patient is non-septic in appearance. Volume status is stable. Potassium is stable. Plan for transesophageal echocardiogram today with anesthesia consult for further characterization. Continue empiric antibiotics for now. History of Present Illness Attending Physician: Yung Meredith, History of Present Illness Enzo Woods is a 44 year old male seen in cardiology consultation per the request of Dr. Meredith for assessment of cardiac source of embolic stroke. The patient is from [place]. He is in the process of establishing with Dr Au of [facility] from a primary care perspective, but is yet to see him. He follows with Dr. Uribe of [facility] nephrology. Patient states he has a longstanding history of progressive kidney disease that worsened after an admission in [facility] in 2013. He states at that time his admitting diagnosis was congestive heart failure, although he has been counseled in the meantime that he did not have a underlying heart problem. He describes having been on hemodialysis for about a year in 2014, and has been on peritoneal dialysis since 2016. His recent medical history dates back to February, when he describes having been treated for a bacterial pneumonia. He subsequently was hospitalized at [facility] for treatment of hyperkalemia. He received Kayexalate for the hyperkalemia, and while hospitalized, developed significant chest discomfort. Review of records describes that he had been observed to have significant inferior ST segment elevation at that time, which prompted transfer to [facility] for emergent cardiac catheterization with a diagnosis of ST segment elevation myocardial infarction. Coronary angiography performed on an emergent basis however by Dr. Gaming on 03/08/2019 did not reveal a coronary culprit, with maximum stenosis of 70% in the first diagonal branch of the LAD, and the remaining coronary arteries had mild luminal irregularities. There was no coronary artery culprit for his ST elevation, and on further assessment, it was felt that he had pericarditis and therefore he was treated with colchicine which was dosed renally. He states that in the meantime, his chest discomfort has resolved. But he has noted right lower extremity weakness with onset he describes after the cardiac catheterization, and has become progressively worse. This is prevented him from be able to walk.. He was admitted via the emergency room last night, and an MRI of the brain revealed a few small acute infarcts in the periventricular white matter of the right frontal and left parietal lobes with appearance consistent with embolic infarcts as per the radiology interpretation of the MRI. He notes he had a mild fever at the time of his respiratory illness a month ago, but no prolonged fevers or chills. An echocardiogram had been performed at the time of his cardiac hospitalization at [facility] which revealed findings of a 3 x 1 cm echodense abnormality on the atrial aspect of the posterior leaflet of the mitral valve, with suggestion of severe mitral regurgitation and possibly mitral valve stenosis as well. Further evaluation with transesophageal echocardiogram had been tentatively planned after his pericarditis had resolved. Allergies Allergy/AdvReac Type Severity Reaction Status Date / Time acetaminophen [From Percocet] Allergy Verified 03/25/19 13:01 codeine Allergy Verified 03/25/19 13:01 gemfibrozil [From Lopid] Allergy Verified 03/25/19 13:01 ibuprofen Allergy Verified 03/25/19 13:01 isosorbide Allergy Verified 03/25/19 13:01 lisinopril Allergy Verified 03/25/19 13:01 oxycodone [From Percocet] Allergy Verified 03/25/19 13:01 Penicillins Allergy Unknown Unverified 03/25/19 13:01 Home Medications Home Medications Medication Instructions Recorded Confirmed Type albuterol sulfate 90 mcg/actuation 2 puffs INH Q6H PRN #18 gm 03/21/19 03/25/19 Rx aerosol inhaler albuterol sulfate 90 mcg/actuation 2 puffs INH Q6H PRN #18 gm 03/21/19 03/25/19 Rx aerosol inhaler atorvastatin 80 mg tablet 80 mg PO DAILY #90 tab 03/21/19 03/25/19 Rx blood sugar diagnostic #300 ea 03/21/19 03/25/19 Rx cinacalcet 30 mg tablet 30 mg PO DAILY #90 tab 03/21/19 03/25/19 Rx diltiazem HCl 360 mg capsule,24 360 mg PO DAILY #90 cap 03/21/19 03/25/19 Rx hr,extended release docusate sodium 100 mg capsule 100 mg PO DAILY #30 cap 03/21/19 03/25/19 Rx esomeprazole magnesium 40 mg 40 mg PO DAILY #90 cap 03/21/19 03/25/19 Rx capsule,delayed release fluticasone propionate 50 2 sprays INTNAS DAILY #54.6 ml 03/21/19 03/25/19 Rx mcg/actuation nasal spray,suspension furosemide 40 mg tablet 40 mg PO DAILY #90 tab 03/21/19 03/25/19 Rx hydralazine 50 mg tablet 50 mg PO BID #180 tab 03/21/19 03/25/19 Rx insulin aspart U-100 100 unit/mL 50 units SQ BID #15 ml 03/21/19 03/25/19 Rx (3 mL) subcutaneous pen lancets 33 gauge #300 ea 03/21/19 03/25/19 Rx levothyroxine 125 mcg capsule 125 mcg PO DAILY #90 cap 03/21/19 03/25/19 Rx pen needle, diabetic 32 gauge x #200 ea 03/21/19 03/25/19 Rx /" vitamin B comp and C no.3 15 mg-10 1 cap PO DAILY #30 cap 03/21/19 03/25/19 Rx mg-50 mg-5 mg-300 mg capsule zolpidem 5 mg tablet 5 mg PO HS #90 tab 03/21/19 03/25/19 Rx cephalexin 500 mg PO DIRECTED 03/25/19 03/25/19 History trazodone 50 mg PO HS PRN 03/25/19 03/25/19 History Patient History Medical History Acute idiopathic pericarditis Charcot foot due to diabetes mellitus COPD (chronic obstructive pulmonary disease) Diabetic neuropathy Dyslipidemia ESRD (end stage renal disease) on dialysis GERD (gastroesophageal reflux disease) Hyperkalemia Hyperparathyroidism Hypertension Hypothyroidism Peritoneal dialysis status Type 2 diabetes mellitus Surgical History History of cardiac cath Injection of surface of eye Retinal detachment Family History Father Alcohol abuse Diabetes Mother Diabetes Heart disease Social History Preferred Language: Turkish Communication Ability: Effective [employer] Operator Required: No Beliefs That Will Affect Care: None Current Living Situation: Significant Other Other Information That Helps Us Care for You: No Feels Safe at Home: Yes Safety Concerns: Feels Safe At This Time Smoking Status: Never smoker Hx Alcohol Use: No Hx Substance Use: No Review of Systems Review of Systems: All systems reviewed & are unremarkable except as noted in HPI & below Physical Exam Physical Exam: Temp Pulse Resp BP Pulse Ox 36.8 C 84 18 92/60 L 97 03/26/19 11:26 03/26/19 11:26 03/26/19 11:26 03/26/19 11:26 03/26/19 11:26 Constitutional: WD/WN, vitals as above Respiratory: normal respiratory effort, lungs clear to auscultation Cardiovascular: Rate/Rhythm: regular rhythm Heart Sounds: + murmur (I/ systolic and diastolic murmurs noted) Vessels: + JVD (Trace lower leg/ankle edema) Gastrointestinal (Abdomen): normal bowel sounds, soft, nontender, no hepatosplenomegaly Skin: no rashes, warm and dry Neurologic: Patient is conversant, no slurred speech, no word finding difficulties, no problems with his mentation. He does have focal right lower extremity weakness. Results & Data Vital Signs (Past 12 Hours) Vital Signs Temp Pulse Resp BP Pulse Ox 03/26/19 11:26 36.8 C 84 18 92/60 L 97 03/26/19 07:38 36.6 C 86 18 97/62 L 100 03/26/19 02:55 36.7 C 85 16 88/60 L 95 Diagnostic Findings EKG performed yesterday 03/25/2019 revealed normal sinus rhythm at 95 bpm, no ST segment changes. Telemetry reveals stable sinus rhythm without arrhythmia Medications Administered Cardiac Enzymes 03/25/19 Range/Units 12:30 AST 96 H (15-37) U/L Coagulation 03/25/19 03/25/19 Range/Units 12:30 19:28 PT 11.6 11.9 (9.0-12.0) Seconds APTT 27.3 (21.0-31.0) Seconds Lipids 01/07/20 Range/Units 06:03 Triglycerides 193 H (0-150) mg/dl Cholesterol 108 (0-200) mg/dl HDL Cholesterol 25 mg/dl Cholesterol/HDL Ratio 4 CBC 03/26/19 Range/Units 06:03 WBC 8.11 (4.8-10.8) K/uL RBC 3.23 L (4.7-6.1) M/uL Hgb 10.2 L (14.0-18.0) g/dL Hct 32.7 L (42-52) % Plt Count 503 H (130-400) K/uL Neut # (Auto) 3.97 (1.4-6.5) K/uL Lymph # (Auto) 1.59 (1.2-3.4) K/uL [place] # (Auto) 0.50 (0.11-0.59) K/uL Eos # (Auto) 1.94 H (0-0.5) K/uL Baso # (Auto) 0.09 (0-0.2) K/uL Comprehensive Metabolic Panel 03/25/19 03/26/19 Range/Units 12:30 06:03 Sodium 135 L 134 L (136-145) mmol/L Potassium 4.4 4.5 (3.5-5.1) mmol/L Chloride 93 L 94 L (98-107) mmol/L Carbon Dioxide 26 25 (21-32) mmol/L BUN 64 H 74 H (7-18) mg/dl Creatinine 15.80 H* 15.70 H* (0.6-1.4) mg/dl Glucose 171 H 123 H (70-99) mg/dl Calcium 10.1 8.8 (8.5-10.1) mg/dl AST 96 H (15-37) U/L ALT 113 H (12-78) U/L Alkaline Phosphatase 98 (45-117) U/L Total Protein 7.8 (6.4-8.2) gm/dl Albumin 3.3 L (3.4-5.0) gm/dl Intake and Output 03/25/19 03/26/19 03/26/19 22:59 06:59 14:59 Intake Total 1000 / 1000 Balance 1000 / 1000 Intake: IV 1000 / 1000 Nss 1000ML 1,000 ml @ 80 mls/hr 1000 / 1000 IV .[id number] EDMAR Rx#:[id number] Other: Weight 97 kg 99 kg 99 kg Patient Weight 03/27/19 06:59 Weight 99 kg Current Inpatient Medications Al Hydrox/Mg Hydrox/Simethicone (Maalox) 15 ml PO Q4H PRN PRN Reason: Dyspepsia Stop: 04/24/19 19:08 Albuterol (Ventolin Hfa) 2 puffs INH Q6H PRN PRN Reason: shortness of breath or wheezing Stop: 04/24/19 19:08 Atorvastatin Calcium (Lipitor) 80 mg PO DAILY [facility] Stop: 04/25/19 08:59 Last Admin: 03/26/19 08:19 Dose: 80 mg Documented by: Clopidogrel Bisulfate (Plavix) 75 mg PO QAM [facility] Stop: 04/25/19 08:59 Last Admin: 03/26/19 08:21 Dose: 75 mg Documented by: Dextrose (Dextrose 50%) 25 - 50 ml IV UD PRN; Protocol PRN Reason: Hypoglycemia Protocol Stop: 04/24/19 19:08 Diltiazem HCl (Cardizem Cd) 360 mg PO DAILY [facility] Stop: 04/25/19 08:59 Docusate Sodium (Colace) 100 mg PO DAILY [facility] Stop: 04/25/19 08:59 Last Admin: 03/26/19 09:24 Dose: 100 mg Documented by: Fluticasone Propionate (Flonase) 2 sprays NA DAILY [facility] Stop: 04/24/19 19:59 Last Admin: 03/26/19 08:23 Dose: 2 sprays Documented by: Glucagon (Glucagen) 1 mg SQ UD PRN; Protocol PRN Reason: Hypoglycemia Protocol Stop: 04/24/19 19:08 Glucose (Dex4 Glucose) 4 - 8 tabs PO UD PRN; Protocol PRN Reason: Hypoglycemia Protocol Stop: 04/24/19 19:08 Glucose (Glucose 40%) 15 - 30 gm PO UD PRN; Protocol PRN Reason: Hypoglycemia Protocol Stop: 04/24/19 19:08 Hydralazine HCl (Apresoline) 50 mg PO BID [facility] Stop: 04/24/19 20:59 Ceftriaxone Sodium 1,000 mg/ (Dextrose) 50 mls @ 100 mls/hr IV Q24H [facility]; Protocol Stop: 03/28/19 12:59 Insulin Aspart (Novolog Flexpen) 0 units SC ACHS [facility] Stop: 04/24/19 20:59 Last Admin: 03/26/19 12:20 Dose: 1 units Documented by: Insulin Detemir (Levemir Flextouch) 8 units SC BID [facility] Stop: 04/25/19 08:59 Last Admin: 03/26/19 08:18 Dose: 8 units Documented by: Ioversol (Optiray 320 125ml) 120 ml IV ONCE PRN PRN Reason: Interaction Checking Stop: 03/30/19 07:15 Last Admin: 03/26/19 07:17 Dose: 120 ml Documented by: Levothyroxine Sodium (Synthroid) 125 mcg PO DAILYBB [facility] Stop: 04/25/19 06:29 Last Admin: 03/26/19 06:09 Dose: 125 mcg Documented by: Magnesium Hydroxide (Milk Of Magnesia) 30 ml PO Q12H PRN PRN Reason: Constipation Stop: 04/24/19 19:08 Miscellaneous (Order Awaiting Action) 1 ea N/A QS [facility] Stop: 04/25/19 00:00 Last Admin: 03/26/19 08:24 Dose: Not Given Documented by: Miscellaneous (Carbohydrates For Hypoglycemia) 15 - 30 gm PO UD PRN PRN Reason: Hypoglycemia Protocol Stop: 04/24/19 19:08 Miscellaneous Information (Pharmacist Discharge Med Rec Consult) 1 ea N/A UD PRN PRN Reason: Consult Stop: 04/24/19 19:08 Miscellaneous Information (Consult Glycemic Management Pharmacy) 1 ea N/A UD PRN; Protocol PRN Reason: Consult Stop: 04/24/19 19:30 Morphine Sulfate (Morphine Sulfate) 0.5 mg IV Q2H PRN PRN Reason: Pain Stop: 04/08/19 21:44 Last Admin: 03/25/19 22:16 Dose: 0.5 mg Documented by: Pantoprazole Sodium (Protonix) 40 mg PO DAILY [facility] Stop: 04/24/19 19:59 Last Admin: 03/26/19 08:21 Dose: 40 mg Documented by: Polyethylene Glycol (Miralax Powder Packet) 17 gm PO DAILY PRN PRN Reason: Constipation Stop: 04/24/19 19:08 Trazodone HCl (Desyrel) 50 mg PO HS PRN PRN Reason: Sleep Stop: 04/24/19 19:08 Vitamin B Complex (Vitamin B Complex) 1 tab PO DAILY EDMAR Stop: 04/25/19 08:59 Last Admin: 03/26/19 08:21 Dose: 1 tab Documented by: Zolpidem Tartrate (Ambien) 5 mg PO HS [facility] Stop: 04/24/19 20:59 Last Admin: 03/25/19 22:17 Dose: 5 mg Documented by: (1) CVA (cerebral vascular accident) CVA mechanism: unspecified Qualified Code(s): I63.9 - Cerebral infarction, unspecified
--- NOTE | 2019-03-26 13:54 | Anesthesiology Consultation ---
Date of Service March 26, 2019 Assessment & Plan (1) Encounter for pre-operative examination: Chart Review Chart Review: Acceptable Risk for Surgery Consults Requested none ASA ASA4 Proposed Anesthesia Anesthesia Type: MAC Risk / Benefits Reviewed With: PT / POA / Parent / Guardian, Accepts Plan and Informed Consent Obtained History Height/Weight Height: 5 ft 4 in Weight: 99 kg Allergies Allergy/AdvReac Type Severity Reaction Status Date / Time acetaminophen [From Percocet] Allergy Verified 03/25/19 13:01 codeine Allergy Verified 03/25/19 13:01 gemfibrozil [From Lopid] Allergy Verified 03/25/19 13:01 ibuprofen Allergy Verified 03/25/19 13:01 isosorbide Allergy Verified 03/25/19 13:01 lisinopril Allergy Verified 03/25/19 13:01 oxycodone [From Percocet] Allergy Verified 03/25/19 13:01 Penicillins Allergy Unknown Unverified 03/25/19 13:01 Medications Home Medications Medication Instructions Recorded Confirmed Last Taken albuterol sulfate 90 mcg/actuation 2 puffs INH Q6H PRN #18 gm 03/21/19 03/25/19 Unknown aerosol inhaler albuterol sulfate 90 mcg/actuation 2 puffs INH Q6H PRN #18 gm 03/21/19 03/25/19 Unknown aerosol inhaler atorvastatin 80 mg tablet 80 mg PO DAILY #90 tab 03/21/19 03/25/19 Unknown blood sugar diagnostic #300 ea 03/21/19 03/25/19 Unknown cinacalcet 30 mg tablet 30 mg PO DAILY #90 tab 03/21/19 03/25/19 Unknown diltiazem HCl 360 mg capsule,24 360 mg PO DAILY #90 cap 03/21/19 03/25/19 Unknown hr,extended release docusate sodium 100 mg capsule 100 mg PO DAILY #30 cap 03/21/19 03/25/19 Unknown esomeprazole magnesium 40 mg 40 mg PO DAILY #90 cap 03/21/19 03/25/19 Unknown capsule,delayed release fluticasone propionate 50 2 sprays INTNAS DAILY #54.6 ml 03/21/19 03/25/19 Unknown mcg/actuation nasal spray,suspension furosemide 40 mg tablet 40 mg PO DAILY #90 tab 03/21/19 03/25/19 Unknown hydralazine 50 mg tablet 50 mg PO BID #180 tab 03/21/19 03/25/19 Unknown insulin aspart U-100 100 unit/mL 50 units SQ BID #15 ml 03/21/19 03/25/19 03/25/19 (3 mL) subcutaneous pen lancets 33 gauge #300 ea 03/21/19 03/25/19 Unknown levothyroxine 125 mcg capsule 125 mcg PO DAILY #90 cap 03/21/19 03/25/19 Unknown pen needle, diabetic 32 gauge x #200 ea 03/21/19 03/25/19 Unknown 1/" vitamin B comp and C no.3 15 mg-10 1 cap PO DAILY #30 cap 03/21/19 03/25/19 Unknown mg-50 mg-5 mg-300 mg capsule zolpidem 5 mg tablet 5 mg PO HS #90 tab 03/21/19 03/25/19 Unknown cephalexin 500 mg PO DIRECTED 03/25/19 03/25/19 Unknown trazodone 50 mg PO HS PRN 03/25/19 03/25/19 Unknown Active Medications Generic Name Dose Route Start Last Admin Trade Name Freq PRN Reason Stop Dose Admin Atorvastatin Calcium 80 mg 03/26/19 09:00 03/26/19 08:19 Lipitor PO 04/25/19 08:59 80 mg DAILY EDMAR Administration Clopidogrel Bisulfate 75 mg 03/26/19 09:00 03/26/19 08:21 Plavix PO 04/25/19 08:59 75 mg QAM EDMAR Administration Docusate Sodium 100 mg 03/26/19 09:00 03/26/19 09:24 Colace PO 04/25/19 08:59 100 mg DAILY EDMAR Administration Fluticasone Propionate 2 sprays 03/25/19 20:00 03/26/19 08:23 Flonase NA 04/24/19 19:59 2 sprays DAILY EDMAR Administration Insulin Aspart 0 units 03/25/19 21:00 03/26/19 12:20 Novolog Flexpen SC 04/24/19 20:59 1 units ACHS EDMAR Administration Ioversol 120 ml 03/26/19 07:16 03/26/19 07:17 Optiray 320 125ml IV 03/30/19 07:15 120 ml ONCE PRN Administration Interaction Checking Levothyroxine Sodium 125 mcg 03/26/19 06:30 03/26/19 06:09 Synthroid PO 04/25/19 06:29 125 mcg DAILYBB EDMAR Administration Miscellaneous 1 ea 03/26/19 00:00 03/26/19 08:24 Order Awaiting Action N/A 04/25/19 00:00 Not Given QS EDMAR Morphine Sulfate 0.5 mg 03/25/19 21:45 03/25/19 22:16 Morphine Sulfate IV 04/08/19 21:44 0.5 mg Q2H PRN Administration Pain Pantoprazole Sodium 40 mg 03/25/19 20:00 03/26/19 08:21 Protonix PO 04/24/19 19:59 40 mg DAILY EDMAR Administration Vitamin B Complex 1 tab 03/26/19 09:00 03/26/19 08:21 Vitamin B Complex PO 04/25/19 08:59 1 tab DAILY EDMAR Administration Zolpidem Tartrate 5 mg 03/25/19 21:00 03/25/19 22:17 Ambien PO 04/24/19 20:59 5 mg HS EDMAR Administration NPO Date Last Intake of Fluids: 03/25/19 Time Last Intake of Fluids: 19:00 Date Last Intake of Solids: 03/25/19 Time Last Intake of Solids: 17:00 Past Medical History Medical History Acute idiopathic pericarditis Charcot foot due to diabetes mellitus COPD (chronic obstructive pulmonary disease) Diabetic neuropathy Dyslipidemia ESRD (end stage renal disease) on dialysis GERD (gastroesophageal reflux disease) Hyperkalemia Hyperparathyroidism Hypertension Hypothyroidism Peritoneal dialysis status Type 2 diabetes mellitus Exercise / Class Metabolic Activity III < 4 Walking/Shop/Light housework Past Family History Family History Father Alcohol abuse Diabetes Mother Diabetes Heart disease Past Surgical History Surgical History History of cardiac cath Injection of surface of eye Retinal detachment Past Anesthesia History No Hx of Anesthesia Complications and No Family Hx of Anesthesia Complications History of PONV No Hx of PONV and No Hx of Motion Sickness Social History Smoking Status: Never smoker Hx Alcohol Use: No Hx Substance Use: No Physical Exam Vital Signs Last Vital Signs Temp 98.2 F 03/26/19 11:26 Pulse 84 03/26/19 11:26 Resp 18 03/26/19 11:26 BP 92/60 L 03/26/19 11:26 Pulse Ox 97 03/26/19 11:26 ENMT Mouth: no dentition abnormality Thyromental Distance: > or= 3.5 Finger Breadths Mallampati Class: III Neck normal visual inspection Respiratory normal respiratory effort Auscultation: lungs clear to auscultation bilaterally Cardiovascular Rate/Rhythm: regular rate and regular rhythm Testing Laboratory Results 03/26/19 06:03 03/26/19 06:03 PT 11.9 Seconds (9.0-12.0) 03/25/19 19: INR 1.2 (0.9-1.1) H 03/25/19 19: APTT 27.3 Seconds (21.0-31.0) 03/25/19 19:28 Hemoglobin A1c 8.8 % (4.5-5.6) H 03/25/19 12:30 03/26/19 03/26/19 03/26/19 11:28 07:35 04:25 POC Glucose 163 H 142 H 127 H Electrocardiogram Date: 03/25/19 Findings: + NSR @ (95 bpm) Chest X-Ray Date: 03/07/19 Findings: + NAD Echocardiogram Date: 03/08/19 LV EF 60-64%. No LV segmental wall motion abnormalities. The RV cavity is mildly dilated. The RV systolic function is moderately reduced. There is a large (3x1 cm), mobile echo density attached to the mitral valve. There is severe mitral regurgitation. Moderate pulmonary hypertension is present. Cardiac Catheterization Date: 03/11/19 The 1st diagonal had a 70% stenosis, the remaining coronaries had mild luminal irregularities. The LVEDP was 22mmHg, which is moderately elevated Other Testing Brain MRI 03/25/19 IMPRESSION: 1. Few small acute infarcts in the periventricular white matter of the right frontal and left parietal lobes most consistent with embolic infarcts at least 6 to 12 hours old.
[2019-03-26] MEDS ORDERED: GLYCOPYRROLATE 0.2 MG/ML VIAL ONE (14:04)
[2019-03-26] MEDS ORDERED: MIDAZOLAM HCL 1 MG/ML 2ML VIAL ONE (14:04)
[2019-03-26] MEDS ORDERED: KETAMINE HCL INJ 50 MG/ML 10 ML VIAL ONE (14:04)
[2019-03-26] MEDS ORDERED: PROPOFOL IV EMULSION 10 MG/ML 20 ML VIAL IV ONE (14:04)
[2019-03-26] MEDS ORDERED: SODIUM CHLORIDE 0.9% INJ 10 ML VIAL ONE (14:04)
--- NOTE | 2019-03-26 15:05 | Neurology Consultation ---
Date of Consultation March 26, 2019 Assessment & Plan (1) Peritoneal dialysis status: (2) Transaminitis: (3) ESRD (end stage renal disease) on dialysis: (4) Acute idiopathic pericarditis: (5) Type 2 diabetes mellitus: (6) Stroke: Enzo Woods is a 44 yo man w/ PMH of diabetes complicated by neuropathy and ESRD on peritoneal dialysis, hypertension, hyperlipidemia, hyperparathyroidism, COPD, GERD and acute idiopathic pericarditis who presented to [facility] for evaluation of right leg pain and inability to move his right leg, found to have punctuate strokes in bilateral cerebral hemispheres and chronic left frontal infarct. # Punctuate strokes: likely 2/2 recent cardiac cath but cannot r/o subtle mycotic aneurysm w/ associated stroke as CTA can miss these. - agree with obtaining serial blood cultures to r/o endocarditis or bacteremia and treating accordingly - if blood culture positive and vegetation confirmed on VIVIANE, would recommend obtaining DSA to determine presence or absence of mycotic aneurysm to help with timing of valve replacement. This would likely require transfer to higher level of care. - Work with PCP on stroke prevention goals (A1c<7, LDL <70, BP<130/85) - new stroke locations do not really explain his symptom of RLE weakness, however, chronic left frontal infarct may be presenting with symptoms of recrudescence in the setting of infection/hypotension. Would ensure no osteo as infectious source causing recrudscence as he does have elevated ESR/CRP (defer to primary team). Thank you for this interesting consult. We will continue to follow. Please call or text with questions. History of Present Illness Attending Physician: Yung Meredith, DO History of Present Illness Enzo Woods is a 44 yo man w/ PMH of diabetes complicated by neuropathy and ESRD on peritoneal dialysis, hypertension, hyperlipidemia, hyperparathyroidism, COPD, GERD and acute idiopathic pericarditis who presented to [facility] for evaluation of right leg pain and inability to move his right leg following a heart cath on March 08, 2019. Per chart review, he was urgently transferred to [facility] for cardiac catheterization in the setting of ST elevations noted on dialysis telemetry. He had an associated episode of chest pain with systolic blood pressures in the 90 that was relieved by nitroglycerin. EKG at that time was normal sinus rhythm. He had a cardiac catheterization that did not show any significant blockages, however his EKG was concerning for acute pericarditis given diffuse ST elevations. He was started on colchicine and high-dose aspirin. Because of pericarditis was not determined. He was recommended to stay in the hospital given persistently elevated potassium, however requested to leave AMA at that time. Prior to discharge, he did notice report that he had some right leg pain; no groin hematoma was noted at that time and he was able to move his leg independently. Echocardiogram performed at that time was notable for EF of 60 to 64%, mildly dilated RV, moderately reduced RV function, and a large 3 x 1 cm mobile echo density on the mitral valve with associated severe mitral regurgitation. Review of labs this admission is notable for WBC 10.59, hemoglobin 11.0, platelet 616, ESR 83, INR 1.2, sodium 135, potassium 4.4, chloride 93, anion gap 16, BUN 64, creatinine 15.8, A1c 8.8, AST 96, ALT 113, normal alkaline phosphatase, CRP 7.74, LDL 44, B12 643. He has a basic room screen pending. Independent review of CT head from March 25, 2019 shows a small left frontal hypodensity, no hemorrhage. MRI of the brain shows several punctate infarcts in bilateral cerebral hemispheres with mild generalized atrophy, mild small vessel ischemic disease and chronic left frontal infarct. CTA head and neck showed no LVO, high-grade stenosis or aneurysm. On examination today, he had just returned from [facility] and was unable to answer further questions or follow commands (medication side effect). His partner was in the room and reports that he had RLE pain that started after the cardiac cath at [facility] last month. Denies having fever, chills or recent infection. He does have at least 2 wounds on his feet; not sure if they have been worsening or not. Denies knowledge of any prior stroke or stroke-like symptoms in the past. Allergies Allergy/AdvReac Type Severity Reaction Status Date / Time acetaminophen [From Percocet] Allergy Verified 03/25/19 13:01 codeine Allergy Verified 03/25/19 13:01 gemfibrozil [From Lopid] Allergy Verified 03/25/19 13:01 ibuprofen Allergy Verified 03/25/19 13:01 isosorbide Allergy Verified 03/25/19 13:01 lisinopril Allergy Verified 03/25/19 13:01 oxycodone [From Percocet] Allergy Verified 03/25/19 13:01 Penicillins Allergy Unknown Unverified 03/25/19 13:01 Home Medications Home Medications Medication Instructions Recorded Confirmed Type albuterol sulfate 90 mcg/actuation 2 puffs INH Q6H PRN #18 gm 03/21/19 03/25/19 Rx aerosol inhaler albuterol sulfate 90 mcg/actuation 2 puffs INH Q6H PRN #18 gm 03/21/19 03/25/19 Rx aerosol inhaler atorvastatin 80 mg tablet 80 mg PO DAILY #90 tab 03/21/19 03/25/19 Rx blood sugar diagnostic #300 ea 03/21/19 03/25/19 Rx cinacalcet 30 mg tablet 30 mg PO DAILY #90 tab 03/21/19 03/25/19 Rx diltiazem HCl 360 mg capsule,24 360 mg PO DAILY #90 cap 03/21/19 03/25/19 Rx hr,extended release docusate sodium 100 mg capsule 100 mg PO DAILY #30 cap 03/21/19 03/25/19 Rx esomeprazole magnesium 40 mg 40 mg PO DAILY #90 cap 03/21/19 03/25/19 Rx capsule,delayed release fluticasone propionate 50 2 sprays INTNAS DAILY #54.6 ml 03/21/19 03/25/19 Rx mcg/actuation nasal spray,suspension furosemide 40 mg tablet 40 mg PO DAILY #90 tab 03/21/19 03/25/19 Rx hydralazine 50 mg tablet 50 mg PO BID #180 tab 03/21/19 03/25/19 Rx insulin aspart U-100 100 unit/mL 50 units SQ BID #15 ml 03/21/19 03/25/19 Rx (3 mL) subcutaneous pen lancets 33 gauge #300 ea 03/21/19 03/25/19 Rx levothyroxine 125 mcg capsule 125 mcg PO DAILY #90 cap 03/21/19 03/25/19 Rx pen needle, diabetic 32 gauge x #200 ea 03/21/19 03/25/19 Rx 1/" vitamin B comp and C no.3 15 mg-10 1 cap PO DAILY #30 cap 03/21/19 03/25/19 Rx mg-50 mg-5 mg-300 mg capsule zolpidem 5 mg tablet 5 mg PO HS #90 tab 03/21/19 03/25/19 Rx cephalexin 500 mg PO DIRECTED 03/25/19 03/25/19 History trazodone 50 mg PO HS PRN 03/25/19 03/25/19 History Patient History Medical History Acute idiopathic pericarditis Charcot foot due to diabetes mellitus COPD (chronic obstructive pulmonary disease) Diabetic neuropathy Dyslipidemia ESRD (end stage renal disease) on dialysis GERD (gastroesophageal reflux disease) Hyperkalemia Hyperparathyroidism Hypertension Hypothyroidism Peritoneal dialysis status Type 2 diabetes mellitus Surgical History History of cardiac cath Injection of surface of eye Retinal detachment Family History Father Alcohol abuse Diabetes Mother Diabetes Heart disease Social History Preferred Language: Austrian Communication Ability: Effective [employer] Required: No Beliefs That Will Affect Care: None Current Living Situation: Significant Other Other Information That Helps Us Care for You: No Feels Safe at Home: Yes Safety Concerns: Feels Safe At This Time Smoking Status: Never smoker Hx Alcohol Use: No Hx Substance Use: No Review of Systems Review of Systems: 14 point review of systems completed and negative except as in HPI. Physical Exam Physical Exam: General Exam: GEN: NAD, lying down in examination bed. CV: RRR on monitor, no significant edema. PULM: Nonlabored respirations on room air. Neuro Exam: MS: Drowsy but arousable. Just returned from [facility] with conscious sedation, unable to answer questions or follow commands consistently. Paucity of speech. Unable to assess language, orientation, cognition or attention. No clear neglect. CN: Visual lovett full, + blink to threat bilaterally. No extinction to double simultaneous stimuli. Unable to visualize fundi on fundoscopic exam. PERRLA OU. EOMI intact with following examiner around room. Facial muscles full and symmetric. Hearing intact to conversation. Unable to assess facial sensation, uvula, SCMs or tongue as he was not able to participate in the exam. MOTOR: Normal bulk and tone. Moving RUE/LUE/LLE antigravity spontaneously off of the bed, minimal movement of RLE (would bend knee and roll in bed some). REFLEXES: 1+ at biceps, triceps, brachioradialis, trace patella, and absent Achilles bilaterally. Toes mute bilaterally. SENSORY: withdraws to noxious stimuli COORDINATION: No dysmetria or ataxia on observed movements. GAIT: Deferred due to physical status. NIH STROKE SCALE 1A. Level of Consciousness (0-3) = 1 (UN, medication effect) 1B. LOC Questions (0-2) = 2 1C. LOC Commands (0-2) = 1 2. Best Horizontal Gaze (0-2) = 0 3. Visual Lovett (0-3) = 0 4. Facial Palsy (0-3) = 0 5. Motor Arm Right (0-4) = 0 Left (0-4) = 0 6. Motor Leg Right (0-4) = 2 Left (0-4) = 0 7. Limb Ataxia (0-2) = 0 8. Sensory (0-2) = 0 9. Best Language (0-3) = 2 10. Dysarthria (0-2) = 2 11. Extinction and Inattention (0-2) = 0 NIHSS TOTAL = 10UN Results & Data Vital Signs (Past 12 Hours) Vital Signs Temp Pulse Resp BP Pulse Ox 03/26/19 14:05 86 20 91/67 L 98 03/26/19 11:26 36.8 C 84 18 92/60 L 97 03/26/19 07:38 36.6 C 86 18 97/62 L 100 03/26/19 02:55 36.7 C 85 16 88/60 L 95 PG Care Time/CCT Total # of Minutes Spent Total Time Spent with Patient: Total time spent is greater than 50% in coordination of care (as documented) at patient's floor/unit and/or counseling patient:
--- NOTE | 2019-03-26 15:47 | Anesthesiology Progress Note ---
Date of Service March 26, 2019 Anesthesia Post Procedure Vital Signs Vital Signs: Temp Pulse Pulse Resp BP Pulse Ox Pulse Ox 03/26/19 14:05 86 20 91/67 L 98 03/26/19 11:26 98.2 F 84 18 92/60 L 97 03/26/19 07:38 97.9 F 86 18 97/62 L 100 03/26/19 02:55 98.1 F 85 16 88/60 L 95 03/25/19 23:02 98.1 F 95 H 16 85/66 L 95 03/25/19 19:09 97.5 F L 99 H 99 H 16 92/67 L 99 99 03/25/19 18:05 90 18 99 03/25/19 16:03 90 18 94/57 L 95 Pain Intensity Right Leg: Pain Intensity: 5 Transfer of Care Handoff Completed per policy Notes Mental Status: alert / awake / arousable and participated in evaluation Patient Amnestic to Procedure: Yes Nausea / Vomiting: adequately controlled Pain: adequately controlled Airway Patency, RR, SpO2: stable & adequate BP & HR: stable & adequate Hydration State: stable & adequate Anesthetic Complications: no major complications apparent and Pt Satisfied with anesthetic care
--- NOTE | 2019-03-26 16:07 | Post Operative Brief Note ---
Cardiology Brief Post Op Date of Surgery March 26, 2019 Pre & Post Diagnosis Preprocedure diagnosis: Mitral valve abnormality, assess for cardiac source of cerebral embolism Post procedure diagnosis: Minimally mobile calcified echodense mass on the left atrial aspect of the mitral valve, likely calcified partially flail mitral valve leaflet, severe mitral regurgitation Operation Date: 03/26/19 14:30 Operation Date: 03/27/19 14:30 Procedure After informed consent was obtained and a timeout was performed the patient was sedated with the assistance of the anesthesia team receiving a total of 1 mg IV Versed, 100 mg of IV ketamine, and 0.1 mg of glycopyrrolate. There is a large calcified echodensity, possibly healed vegetation versus flail portion of the posterior mitral valve leaflet with subsequent calcification, severe mitral valve regurgitation is present. The atrial septum is intact without evidence of atrial septal defect or PFO. Recommendations: ongoing antibiotic therapy for now while awaiting culture results. Continue clopidogrel. Continue atorvastatin. Manager Search Aquilse Hilliard DO Complaint Supervisor Lindy Prado, RCA Estimated Blood Loss 0 Findings Consistent with Post-Op Diagnosis Anesthesia Type MAC Complications none
[2019-03-26] MEDS: cefTRIAXone SODIUM 2,000 MG in DEXTROSE 5% 50 ML IV SCH (17:17)
--- NOTE | 2019-03-26 17:21 | Hospitalist Progress Note ---
Date of Service March 26, 2019 Assessment & Plan (1) CVA (cerebral vascular accident): continued evaluation on etiology ongoing -?mitral valve vegetation vs other (appreciate neuro thoughts that it would easily be LHC related) - bihemispheric certainly begs central cause -VIVIANE today, blood cultures pending (given level of concern, start empiric rocephin pending VIVIANE and time for growth on cultures) -PT/OT eval and treat -doubt that RLE symptoms relate to this given lack of arm or face findings (see below) (2) Right leg weakness: unclear etiology - by hx he notes that it started fairly abruptly after LHC raising concern on vascular etiology, but relative lack of pain and fairly reassuring PE for large vessel arterial ischemia (does examine like small vessel ischemia - see below) also makes me question neurologic/lumbar nerve impingement type findings -RLE arterial doppler -serial exams -if no striking findings w above, image lumbar spine (3) Foot ulcer: Feet do examined concerning for not only venous stasis ulcers but also (especially his left fifth toe) arterial ulceration. More than likely small vessel disease. Wound consult (may need to work-up left fifth toe further but for now given that it has been in a relatively stable state for the last couple months we will evaluate his more pressing problems above expeditiously and then start to work on the situation with the toe); no cellulitis, so well we have him on antibiotics for the concern on bacteremia, there does not appear to be a pressing need for antibiotics as it relates to any of his ulcerations. Local wound care, serial exams, evaluate for what we may be able to do to help with his vascular risk factors. (4) ESRD (end stage renal disease) on dialysis: Ongoing peritoneal dialysis. Had active discussions with nephrology today given the patient feeling like he was starting to fill up with fluidnephrology aware and were planning on dialyzing as soon as possible in the context of his other work-up as above. (5) Mitral valve disorder: For transesophageal echo today. We will also await other findings in this regard given that he notes a prior history of congestive heart failure but not entirely clear why or what the etiology is. (6) Hypertension: blood pressure meds still on hold - follow closely but with pressures where they're at, continue to hold. (7) COPD (chronic obstructive pulmonary disease): Stable ,continue albuterol inhaler 2 puffs every 6 hours as needed, fluticasone propionate nasal spray 2 sprays daily; will need to investigate further if truly COPD - if so would also bneefit from anti-cholinergic (8) Dyslipidemia: Continue atorvastatin 80 mg p.o. daily. (9) Hypothyroidism: Continue levothyroxine 125 MCG's p.o. daily (10) Type 2 diabetes mellitus: A1c 8.8, so outpt control will need ipmrovement; current sugars reasonable though - so continue current insulins and follow (11) Diabetic neuropathy: noted (12) DVT prophylaxis: start heparin SQ (13) Discharge planning issues: Still very acute, with potential for decompensation, requiring ongoing PCU stay. Time in the room approximately 11:50 AM, time out of the room approximately 12:25 PM, greater than 30 minutes [id number] today. Subjective Notes ongoing right leg pain and weakness. Seems to go down the entirety of his leg, fairly nonfocal, has a hard time describing the pain although heavily notes that it is weakness that is the major problemthat is not really able to get around with it. Notes this started more or less whenever he woke up from his heart cath at [facility], does not recall any work-up to getting to the bottom of the etiology. Cary mistreated there and signed out AMA. Currently at home he has been struggling with the right leg weakness, but otherwise has not had any other new focal neuro deficits. No face numbness or weakness no slurred speech. He relates no real improvement in symptoms and therefore he came here for further evaluation. He notes normally he has dialysis much earlier in the day than now and feels like he is blowing up with fluid some. His significant other provides a large amount of history as well. The patient himself is rather tired, but will wake up and converse freely and after we start to talk for a while he then stays awake and is an active participant in the conversation. Review of Systems Review of Systems: All systems reviewed & are unremarkable except as noted in HPI & below Physical Exam Physical Exam: In general he is initially drowsy but awakens and then eventually after talking for a while stays awake. He is alert and oriented x3. He appears extremely fatigued but no pain or respiratory distress. HEENT normocephalic atraumatic mucous membranes are moist. No subungual lesions or ulcerations. Pupils are equal round and reactive. No facial droop and no slurred speech. Neck shows full range of motion. Cardio is regular without rubs murmurs gallops. Lungs are clear to auscultation except for faint bibasilar rales, no rhonchi no wheezes good effort no accessory muscle use. Abdomen is soft but moderately distended no focal tenderness no guarding, no rebound, no rigidity. Extremities show no clubbing. Right lower extremity is very weak and mildly tender to palpation diffuselyeven with light touch he notes it is a little bit more tender than his left. He has small and shallow u lcerations with no exudate and no tracking erythema. Left lower extremity is far less edematous (right is probably 2+, left is probably 1+ to trace although it does have a compression stocking on) and he has a blackened ulcer at the tip of his left fifth toe. Again no tracking erythema no exudate, may be mildly foul-smelling. Skin otherwise shows no rashes, no pallor, no icterus. I do not note any conjunctival splinter hemorrhages etc. Mental status shows good recent and remote recall normal mood and affect good judgment and insight. Results & Data Vital Signs (Past 12 Hours) Vital Signs Temp Pulse Resp BP Pulse Ox 03/26/19 15:59 98 H 16 121/76 96 03/26/19 15:44 105 H 16 113/80 97 03/26/19 14:05 86 20 91/67 L 98 03/26/19 11:26 98.2 F 84 18 92/60 L 97 03/26/19 07:38 97.9 F 86 18 97/62 L 100 PG Care Time/CCT Total # of Minutes Spent Total Time Spent with Patient: Total time spent is greater than 50% in coordination of care (as documented) at patient's floor/unit and/or counseling patient: (1) CVA (cerebral vascular accident) CVA mechanism: unspecified Qualified Code(s): I63.9 - Cerebral infarction, unspecified
--- NOTE | 2019-03-26 17:22 | Nephrology Consultation ---
Date of Consultation March 26, 2019 Assessment & Plan (1) ESRD (end stage renal disease) on dialysis: plan PD this evening after VIVIANE 13 hours, 5 exchanges all 2.5% -daily bmp, hgb q 24-48 hrs -no indication today for epo; will follow for needs and check iron stores Present on Admission?: Yes (2) Peritoneal dialysis status: see above Present on Admission?: Yes (3) Acute idiopathic pericarditis: per cardiology recommendations; f/u VIVIANE results re vegetation Present on Admission?: Yes (4) Right leg weakness: per primary service and neuro Present on Admission?: Yes (5) Foot ulcer: per primary service; elevated inflammatory markers noted Present on Admission?: Yes History of Present Illness Reason for Consultation: esrd on PD Requesting Physician: Dr Meredith Attending Physician: Yung Meredith, DO History of Present Illness 44 y/o M whom I'm asked to see for dialysis needs after he was admitted for management of possible acute ischemic stroke after he presented for eval of RLE weakness. He has been on dialysis for 4 years; no recent peritonitis in past year. PMH includes DM, HTN, COPD, hypothyroid. Also w/ DM foot wound on presentation. He was admitted to [facility] from 03/08- and signed out AMA. He had been transferred from [facility] to [facility] for cardiac cath after presenting there w/ STEMI. Cardiac cath showed no focal lesions including no targets for intervention. He did have TTE showing 3 x 1 cm density on mitral valve concerning for vegetation; blood cxs were negative. he was d/c from [facility] w/ dx of idiopathic pericarditis. He dialyzes under the care of my partners at [facility]. He has not yet had training on the cycler and so does CAPD w/ 5 x 2 L exchanges, usually combo of green/red bags. Pt had VIVAINE today; results pending. Neuro has evaluated pt and not finding that RLE weakness explained by MRI findings of punctate strokes more likely from recent cath procedure. Allergies Allergy/AdvReac Type Severity Reaction Status Date / Time acetaminophen [From Percocet] Allergy Verified 03/25/19 13:01 codeine Allergy Verified 03/25/19 13:01 gemfibrozil [From Lopid] Allergy Verified 03/25/19 13:01 ibuprofen Allergy Verified 03/25/19 13:01 isosorbide Allergy Verified 03/25/19 13:01 lisinopril Allergy Verified 03/25/19 13:01 oxycodone [From Percocet] Allergy Verified 03/25/19 13:01 Penicillins Allergy Unknown Unverified 03/25/19 13:01 Home Medications Home Medications Medication Instructions Recorded Confirmed Type albuterol sulfate 90 mcg/actuation 2 puffs INH Q6H PRN #18 gm 03/21/19 03/25/19 Rx aerosol inhaler albuterol sulfate 90 mcg/actuation 2 puffs INH Q6H PRN #18 gm 03/21/19 03/25/19 Rx aerosol inhaler atorvastatin 80 mg tablet 80 mg PO DAILY #90 tab 03/21/19 03/25/19 Rx blood sugar diagnostic #300 ea 03/21/19 03/25/19 Rx cinacalcet 30 mg tablet 30 mg PO DAILY #90 tab 03/21/19 03/25/19 Rx diltiazem HCl 360 mg capsule,24 360 mg PO DAILY #90 cap 03/21/19 03/25/19 Rx hr,extended release docusate sodium 100 mg capsule 100 mg PO DAILY #30 cap 03/21/19 03/25/19 Rx esomeprazole magnesium 40 mg 40 mg PO DAILY #90 cap 03/21/19 03/25/19 Rx capsule,delayed release fluticasone propionate 50 2 sprays INTNAS DAILY #54.6 ml 03/21/19 03/25/19 Rx mcg/actuation nasal spray,suspension furosemide 40 mg tablet 40 mg PO DAILY #90 tab 03/21/19 03/25/19 Rx hydralazine 50 mg tablet 50 mg PO BID #180 tab 03/21/19 03/25/19 Rx insulin aspart U-100 100 unit/mL 50 units SQ BID #15 ml 03/21/19 03/25/19 Rx (3 mL) subcutaneous pen lancets 33 gauge #300 ea 03/21/19 03/25/19 Rx levothyroxine 125 mcg capsule 125 mcg PO DAILY #90 cap 03/21/19 03/25/19 Rx pen needle, diabetic 32 gauge x #200 ea 03/21/19 03/25/19 Rx 1/4" vitamin B comp and C no.3 15 mg-10 1 cap PO DAILY #30 cap 03/21/19 03/25/19 Rx mg-50 mg-5 mg-300 mg capsule zolpidem 5 mg tablet 5 mg PO HS #90 tab 03/21/19 03/25/19 Rx cephalexin 500 mg PO DIRECTED 03/25/19 03/25/19 History trazodone 50 mg PO HS PRN 03/25/19 03/25/19 History Patient History Medical History Acute idiopathic pericarditis Charcot foot due to diabetes mellitus COPD (chronic obstructive pulmonary disease) Diabetic neuropathy Dyslipidemia ESRD (end stage renal disease) on dialysis GERD (gastroesophageal reflux disease) Hyperkalemia Hyperparathyroidism Hypertension Hypothyroidism Peritoneal dialysis status Type 2 diabetes mellitus Surgical History History of cardiac cath Injection of surface of eye Retinal detachment Family History Father Alcohol abuse Diabetes Mother Diabetes Heart disease Social History Preferred Language: Slovenian Communication Ability: Effective Blow Pit Operator Required: No Beliefs That Will Affect Care: None Current Living Situation: Significant Other Other Information That Helps Us Care for You: No Feels Safe at Home: Yes Safety Concerns: Feels Safe At This Time Smoking Status: Never smoker Hx Alcohol Use: No Hx Substance Use: No Review of Systems Review of Systems: All systems reviewed & are unremarkable except as noted in HPI & below Respiratory: no cough, no dyspnea and no dyspnea on exertion Cardiovascular: no chest pain Gastrointestinal: + constipation (tendency to this; last bm yesterday); no abdominal pain, no heartburn and no diarrhea/loose stools CC today is hunger from beint NPO Genitourinary: + problem reported (anuric at baseline) Integumentary: + lesions (R foot) Neurologic: + localized weakness (rle) Physical Exam Constitutional: well developed, well nourished and cooperative; no acute distress sitting up in chair on RA nad Eyes: EOM intact bilaterally ENMT: Ears: no external ear abnormality Nose: no external nose abnormality Mouth: + dry oral mucous membranes Neck: no nuchal rigidity Respiratory: normal respiratory effort Auscultation: + diminished lung sounds and + crackles (L base only; else clear) Cardiovascular: Rate/Rhythm: regular rate and regular rhythm Heart Sounds: + murmur (LUSB) Extremities: + AV fistula (failed LUE); no edema Gastrointestinal (Abdomen): Inspection/Auscultation: normal bowel sounds Percussion/Palpation: abdomen soft; abdomen nontender PD catheter present Musculoskeletal: Extremities: strength 5/5 throughout Skin: no rashes, warm and dry foot wound not examined Neurologic: glass, fluent speech, no tremor Psychiatric: Orientation: alert and oriented x 3 Speech: normal rate/rhythm/volume of speech Affect: + anxious affect Results & Data Vital Signs (Past 12 Hours) Vital Signs Temp Pulse Resp BP Pulse Ox 03/26/19 15:59 98 H 16 121/76 96 03/26/19 15:44 105 H 16 113/80 97 03/26/19 14:05 86 20 91/67 L 98 03/26/19 11:26 36.8 C 84 18 92/60 L 97 03/26/19 07:38 36.6 C 86 18 97/62 L 100 Laboratory Results 03/26/19 06:03 03/26/19 06:03 (1) Foot ulcer Laterality: right Non-pressure ulcer stage: unspecified non-pressure ulcer stage Qualified Code(s): L97.519 - Non-pressure chronic ulcer of other part of right foot with unspecified severity
--- NOTE | 2019-03-26 17:35 | Billing Data ---
Date of Service March 26, 2019 Coding Level of Care Code 91389 Prolonged Care (int'l)
--- NOTE | 2019-03-26 20:25 | Ultrasound Report ---
Study: Arterial Doppler evaluation of the right leg. HISTORY: Post catheterization pain findings: High-grade stenosis of the proximal right common femoral artery. Velocities exceed 380 cm/s. There are dampened flow velocities within the downstream vasculature. All downstream vessels appear t o be patent with minimal vascular flow. IMPRESSION: 1. High-grade and/or critical stenosis at the proximal right common femoral artery 2. Dampened and/or diminished flow within all downstream vessels. Electronically signed by: Juwan Johnston M.D. 03/26/2019 8:24 PM
[2019-03-26] MEDS ORDERED: HEPARIN SOD 5,000 UNIT/0.5 ML VIAL SQ SCH (21:00)
--- NOTE | 2019-03-26 21:08 | Communication Note ---
Date of Service: March 26, 2019 I discussed the results of the patient's right lower extremity arterial duplex scan with nursing: Summary of radiology report: 1. High-grade and/or critical stenosis at the proximal right common femoral artery 2. Dampened and/or diminished flow within all downstream vessels. Is my impression is the patient is having systemic embolism events, to the right lower extremity, as documented on the duplex scan with resultant decreased blood flow, and to the brain based on the MRI. This could either be embolism of the large dense calcified lesion of the mitral valve, which can be a source of cardiac embolism, or superimposed thrombus. Coagulation would be contraindicated in the setting of septic emboli from endocarditis. The patient however does not have any current infectious symptoms, and he is afebrile, and blood cultures performed for work-up of mitral valve abnormality noted on transthoracic echo 2 weeks ago at [facility] were normal. Although this is a complex, and difficult decision, I think it is most prudent to proceed with anticoagulation. At this time, I recommend proceeding with cautious unfractionated heparin without bolus. Patient is not a candidate for Lovenox given his renal insufficiency. Discussed with nursing.
[2019-03-26] MEDS: ZOLPIDEM TARTRATE 5 MG TAB PO SCH (22:33)
[2019-03-26] MEDS: INSULIN DETEMIR FLEXPEN/FLEX TOUCH 100 UNITS/ML 3ML SC SCH (22:34)
[2019-03-27] MEDS: HEPARIN SODIUM/DEXTROSE 25,000 UNITS/500 ML BAG IV SCH ×2 (01:32→21:33)
[2019-03-27] MEDS: Heparin IV Standard *NO* Bolus IV SCH ×4 (01:33→08:30)
[2019-03-27] MEDS: LEVOTHYROXINE SODIUM 125 MCG TABLET PO SCH (05:56)
[2019-03-27 06:33] LABS: Basophils # (auto) 0.11 K/uL (0-0.2); Basophils % (auto) 1.2 %; Eosinophils # (auto) 2.05 K/uL (0-0.5); Eosinophils % (auto) 21.6 %; Hematocrit (blood only) 33.6 % (42-52); Hemoglobin 10.1 g/dL (14.0-18.0); Immature Granulocytes # (auto) 0.01 K/uL (0.00-0.02); Immature Granulocytes % (auto) 0.1 %; Lymphocytes # (auto) 1.21 K/uL (1.2-3.4); Lymphocytes % (auto) 12.7 %; Mean Corpuscular Hemoglobin 30.9 pg (25-34); Mean Corpuscular Hgb Conc 30.1 g/dL (32-36); Mean Corpuscular Volume 102.8 fL (80-100); Mean Platelet Volume 10.3 fL (7.4-10.4); Monocytes % (auto) 5.3 %; Neutrophils # (auto) 5.63 K/uL (1.4-6.5); Neutrophils % (auto) 59.1 %; Nucleated RBC # (auto) 0.04 K/uL (0-0); Nucleated RBC % (auto) 0.4 %; Platelet Count 521 K/uL (130-400); RDW Coefficient of Variation 17.5 % (11.5-14.5); RDW Standard Deviation 64.5 fL (36.4-46.3); Red Blood Count 3.27 M/uL (4.7-6.1); White Blood Count 9.51 K/uL (4.8-10.8)
[2019-03-27 07:14] LABS: BUN Creatinine Ratio 4.6 (10-20); Calcium 8.9 mg/dl (8.5-10.1); Creatinine Clr Calc Pharmacy 6.3 ml/min; Est GFR (African American) 3.7; Est GFR (Non-African American) 3.2; Potassium 4.3 mmol/L (3.5-5.1)
[2019-03-27] MEDS: INSULIN ASPART 100 UNITS/ML 3 ML PEN SC SCH ×4 (07:56→21:34)
[2019-03-27] MEDS: ATORVASTATIN 40 MG TAB PO SCH (07:56)
[2019-03-27] MEDS: PANTOprazole 40 MG TAB PO SCH (07:56)
[2019-03-27] MEDS: CLOPIDOGREL BISULFATE 75 MG TAB PO SCH (07:56)
[2019-03-27] MEDS: VITAMIN B COMPLEX TAB PO SCH (07:56)
[2019-03-27] MEDS: FLUTICASONE PROPIONATE NA SPR 16 GM BTL SCH (07:57)
[2019-03-27] MEDS: INSULIN DETEMIR FLEXPEN/FLEX TOUCH 100 UNITS/ML 3ML SC SCH ×2 (07:57→21:36)
[2019-03-27] MEDS: DOCUSATE SODIUM 100 MG CAP PO SCH (08:00)
[2019-03-27 10:52] LABS: Partial Thromboplastin Time 55.5 Seconds (21.0-31.0)
--- NOTE | 2019-03-27 10:54 | Cardiology Progress Note ---
Date of Service March 27, 2019 Assessment & Plan (1) Mitral valve disorder: Transesophageal echo performed 03/26/2019 revealed a 1.3 x 1.1 x 0.3 cm calcified echodensity on the atrial aspect of the mitral valve consistent with possible healed vegetation, chronically fill portion of the posterior mitral valve leaflet which is calcified, or atypical caseous MAC in setting of patient with end-stage renal disease. Also coexistent severe chronic mitral regurgitation. (2) Stroke: Punctate bihemispheric strokes on MRI (3) Femoral artery occlusion, right: Difficult to determine the chronicity of this, as patient does have a right foot diabetic ulcer, but also has acute symptoms of recent right lower leg pain and weakness, raising concerns of possible cardioembolic event to the lower extremity (4) Foot ulcer: As noted above (5) ESRD (end stage renal disease) on dialysis: Presumably due to hypertension/diabetes, was on hemodialysis and 2014, and transitioned to peritoneal dialysis shortly thereafter. The patient had blood cultures performed 2 weeks ago at [facility] after the mitral valve abnormality was first identified on transthoracic echocardiogram, that revealed no growth. Blood cultures drawn at this institution on 03/26/2019 are negative thus far. He is afebrile, without any definite stigmata of current infection. He did have a respiratory illness deemed to be a viral versus bacterial pneumonia about a month ago. My concern is that the patient's MRI findings, and like findings may be due to embolic foci from the mitral valve. Severe mitral valve regurgitation is present, as well as diffuse calcification. This could have superimposed thrombus for which heparin has been initiated, will could have been embolic phenomenon of the calcified lesion. My recommendation is for Transfer to tertiary center for assessment by CT surgery to discuss timing of potential surgical intervention. I think this is most appropriately performed as an inpatient, as the patient may have had 2 recent events.Although he has had stroke noted on MRI, the findings are small, I would favor potential surgical intervention of his mitral valve, before he has a more significant event.Will need further evaluation of the circulation of his right lower extremity to determine atherosclerotic versus embolic cause of the femoral artery occlusion. Patient did undergo cardiac catheterization at [facility] on 03/08/2019, with findings of a 70% first diagonal stenosis, which did not account for his ST segment elevation. He was diagnosed with post pneumonia pericarditis at that time, and his symptoms resolved after a short course of colchicine. Other alternatives was that he had a transient coronary artery embolic event mitral valve that cleared prior to the coronary angiography.There are no regional wall motion abnormalities on the echocardiogram performed on 03/08, and again on transthoracic echocardiogram performed on 03/26/2019, with normal LVEF I have made a call to the transfer center at [facility], and anticipate a call back from CT surgery when they are available. Subjective Patient seen and examined. Notes fatigue post transesophageal echocardiogram procedure yesterday, and last evening, he felt like he had a little bit of diff iculty swallowing, but he tolerated his breakfast well without difficulty this morning. Telemetry reveals ongoing sinus rhythm in the range of 80 to 90 bpm with occasional PACs and PVCs, no prolonged arrhythmia. Heparin drip is infusing since last night without any complications. Review of Systems Review of Systems: All systems reviewed & are unremarkable except as noted in HPI & below Physical Exam Physical Exam: Temp Pulse Resp BP Pulse Ox 36.8 C 91 H 16 99/64 L 98 03/27/19 08:45 03/27/19 08:45 03/27/19 08:45 03/27/19 07:51 03/27/19 07:51 Constitutional: WD/WN, vitals as above Respiratory: normal respiratory effort, lungs clear to auscultation Cardiovascular: Rate/Rhythm: regular rhythm Heart Sounds: + murmur (1/6 systolic murmur) Vessels: no JVD Extremities: + edema (Trace bilateral lower extremity edema) Musculoskeletal: Right foot diabetic ulcer Neurologic: PERRL, EOMI, accommodation nl, no face palsy, no dysarthria Results & Data Vital Signs (Past 12 Hours) Vital Signs Temp Pulse Pulse Pulse Resp BP Pulse Ox 03/27/19 08:45 36.8 C 91 H 16 03/27/19 07:51 37.1 C 90 20 99/64 L 98 03/27/19 04:49 36.7 C 91 H 18 91/64 L 98 03/26/19 23:53 36.5 C 96 H 18 90/56 L 90 (1) Foot ulcer Laterality: right Non-pressure ulcer stage: unspecified non-pressure ulcer stage Qualified Code(s): L97.519 - Non-pressure chronic ulcer of other part of right foot with unspecified severity
--- NOTE | 2019-03-27 11:33 | Communication Note ---
Date of Service: March 27, 2019 I discussed case with Dr Allan Dos Santos of cardiothoracic surgery at [facility], who accepted the patient in transfer pending bed availability, and arr angement of ACLS ground transport. I will discuss with Dr Meredith.
[2019-03-27] MEDS: cefTRIAXone SODIUM 2,000 MG in DEXTROSE 5% 50 ML IV SCH (13:39)
[2019-03-27] MEDS: MoRPHine SULFATE 2 MG/ML CARP IV PRN (13:40)
--- NOTE | 2019-03-27 14:13 | Pharmacy Report ---
Pharmacy Glycemic Short Note 2 - Date of Service March 27, 2019 - Glycemic Short BSG Results (Last 24 hours): 03/26/19 03/26/19 03/27/19 16:27 20:26 06:06 Glucose 205 H POC Glucose 131 H 161 H 03/27/19 03/27/19 07:51 11:33 Glucose POC Glucose 228 H 120 H OUTPATIENT ANTIDIABETIC REGIMEN: * Patient states he was not using this * Novolog 20-30 SQ BID w/ meals depending on PD infusion he was using * A1c = 8.8% however pt is ESRD on PD, thus RBC lifespan affected and result is less reliable ASSESSMENT: 03/27 * Patient reports PD at home using alternate bags of green (2.5% dex) and red (4.25% dex) throughout the day; He was not performing cyclic overnight PD * He often gave himself 20-30units Novolog twice daily while using this PD regimen * He was NPO yesterday and received 19 units of SQ insulin with relatively good control * Cyclic PD was admin overnight 4150-5900 yesterday using 2.5% soln * Fasting BSG elevated this AM as a result of overnight PD, "fasting" result not reliable for titrating basal insulin doses. Will rely on total daily insulin requirements instead. * He is now ordered a diet and tolerated both breakfast and lunch today * Will proceed with current insulin regimen as ordered and follow BSG pattern today. * PD is scheduled again this evening starting at 1999 (per patient) 03/26 * Type 2 diabetic admitted for CVA * Patient started on basal / bolus SQ regimen last evening using weight and moderate stress level * Fasting BSG 142 this AM w/ 17 units Levemir on board * Will continue basal regimen this AM per scale due to ongoing NPO status * Novolog CF has performed well - continue the same PLAN FOR INPATIENT GLYCEMIC CONTROL: * Basal insulin * Lantus SQ BID per scale * 0 units if BSG less than 110 * 8 units if BSG 110-180 * 12 units if BSG above 180 * Bolus insulin * NovoLog per scale ACHS * Goal Range: Low 110 mg/dL - High 140 mg/dL * Correction Factor: 25 mg/dL/unit * Nutritional / Prandial insulin per carb ratio of 1 unit per 8 grams CHO consumed PLAN FOR DISCHARGE: * to be determined
--- NOTE | 2019-03-27 16:46 | Neurology Progress Note ---
Date of Service March 27, 2019 Assessment & Plan (1) Peritoneal dialysis status: (2) Transaminitis: (3) ESRD (end stage renal disease) on dialysis: (4) Acute idiopathic pericarditis: (5) Type 2 diabetes mellitus: (6) Stroke: Enzo Woods is a 44 yo man w/ PMH of diabetes complicated by neuropathy and ESRD on peritoneal dialysis, hypertension, hyperlipidemia, hyperparathyroidism, COPD, GERD and acute idiopathic pericarditis who presented to [facility] for evaluation of right leg pain and inability to move his right leg, found to have punctuate strokes in bilateral cerebral hemispheres and chronic left frontal infarct. # Punctuate strokes: likely 2/2 recent cardiac cath but cannot r/o subtle mycotic aneurysm w/ associated stroke as CTA can miss these. - agree with obtaining serial blood cultures to r/o endocarditis or bacteremia and treating accordingly; preliminary studies show no growth x24 hrs - VIVIANE shows calcified echodensity on mitral valve, ddx includes possible healed vegetation vs atypical caseous MAC in ESRD pt with associated severe MR - LE dopplers notable for right femoral artery occlusion with diminished distal flow -> started on heparin gtt with plan to transfer to higher level of care for further management - Would still recommend obtaining DSA to determine presence or absence of mycotic aneurysm to help with timing of valve replacement as mycotic aneurysms are prone to bleeding (especially in light of the high dose heparin needed during valve replacement). This can be arranged at [facility] where he is being transferred to for further care. - Work with PCP on stroke prevention goals (A1c<7, LDL <70, BP<130/85) - new stroke locations do not really explain his symptom of RLE weakness, however, his right femoral artery occlusion can explain his weakness. Thank you for this interesting consult. We will sign off at this time. Please call or text with questions. Subjective He was much more alert today and able to tell me more about what brought him in. He reports that following his cardiac cath in February, he noticed immediate pain in his leg and felt weakness mainly proximal with pain radiating from the groin site down into his knee. He reports feeling like he could not walk and denied any symptoms in his left lower extremity. He reports having baseline neuropathy that affects his leg up to his knees bilaterally. He reports that the pain started to get better so he thought things were improving, however the weakness did not improve. He did also have transient temperature change in his legs that also improved. Review of Systems Review of Systems: 14 point review of systems completed and negative except as in HPI. Physical Exam Physical Exam: General Exam: GEN: NAD, sitting in bed. HEENT: No conjunctival injection, no rhinorrhea. CV: RRR, no peripheral edema PULM: Nonlabored respirations on room air. Neuro Exam: MS: Awake and Alert. Oriented to person, place, and date. Speech fluent and appropriate without dysarthria or paraphasic errors. Language intact including naming, comprehension, repetition. Cognition and memory grossly intact. Attention intact. No neglect. CN: Visual browne full. No extinction to double simultaneous stimuli. No optic disc edema on fundoscopic exam. PERRLA OU. EOMI without nystagmus. Facial sensation intact to LT. Facial muscles full and symmetric. Hearing intact to conversation. Uvula midline with symmetric palatal elevation. Shoulder shrug normal. Tongue midline. MOTOR: Normal bulk and tone. No pronator drift. BUE strength 5/5 at deltoids, biceps, triceps, wrist flexors and extensors, and hand grasp bilaterally. LLE strength 5/5 at iliopsoas, hamstrings, quadriceps, tibialis anterior, and gastrocnemius. RLE strength 3/5 at iliopsoas, 4-/5 hamstrings, 4-/5 quadriceps, 4/5 tibialis anterior, and 4/5 gastrocnemius. REFLEXES: Trace at biceps, triceps, brachioradialis, absent patella and absent Achilles bilaterally. Toes mute bilaterally. SENSORY: Intact to LT without extinction to double simultaneous stimuli. Vibration and temperature intact in BUEs, diminished in BLEs up to the knees. COORDINATION: No dysmetria or ataxia on aadiav-in-hudp bilaterally. Normal Brooke bilaterally. GAIT: Deferred given physical status. Results & Data Vital Signs (Past 12 Hours) Vital Signs Temp Pulse Pulse Pulse Resp BP Pulse Ox 03/27/19 16:06 97/57 L 03/27/19 15:34 36.9 C 87 16 85/64 L 94 03/27/19 11:35 36.6 C 88 19 97/71 L 98 03/27/19 08:45 36.8 C 91 H 16 03/27/19 07:51 37.1 C 90 20 99/64 L 98 03/27/19 04:49 36.7 C 91 H 18 91/64 L 98 PG Care Time/CCT Total # of Minutes Spent Total Time Spent with Patient: Total time spent is greater than 50% in coordination of care (as documented) at patient's floor/unit and/or counseling patient:
[2019-03-27] MEDS ORDERED: STROKE PATIENT DISCHARGE STA (17:21)
--- NOTE | 2019-03-27 17:21 | Nephrology Progress Note ---
Date of Service March 27, 2019 Assessment & Plan (1) ESRD (end stage renal disease) on dialysis: plan PD this evening since as of 1729 no bed for tonight at [facility] 14 hours w/ 6 x 2L exchanges alt 1.5% and 2.5% given relative hypotension -daily bmp, hgb q 24-48 hrs -no indication today for epo; iron stores are low at 10%; consider venofer after 48 hrs negative cxs (2) Peritoneal dialysis status: see above (3) Right leg weakness: per primary service and neuro; vascular to see (4) Foot ulcer: per primary service; elevated inflammatory markers noted; on ceftriaxone (5) Mitral valve disorder: for transfer to [facility] for CT surgery Present on Admission?: Yes Subjective seen on rounds this am 1000 approx. no sob; got 1038 mL uf ON; no uncontrolled pain; c/o poor sleep; ongoing RLE weakness Review of Systems Review of Systems: All systems reviewed & are unremarkable except as noted in HPI & below Physical Exam Constitutional: well developed, well nourished and cooperative; no acute distress (lying flat on ra) Eyes: EOM intact bilaterally ENMT: Ears: no external ear abnormality Nose: no external nose abnormality Mouth: + dry oral mucous membranes Neck: no nuchal rigidity Respiratory: normal respiratory effort Auscultation: lungs clear to auscu ltation bilaterally and + diminished lung sounds Cardiovascular: Rate/Rhythm: regular rate and regular rhythm Heart Sounds: + murmur (LUSB) Extremities: + AV fistula (failed LUE); no edema Gastrointestinal (Abdomen): Inspection/Auscultation: normal bowel sounds Percussion/Palpation: abdomen soft; abdomen nontender PD cath present Musculoskeletal: Extremities: strength 5/5 throughout Skin: no rashes, warm and dry ulcer R lateral foot Neurologic: tired, glass, fluent speech Psychiatric: Orientation: alert and oriented x 3 Speech: normal rate/rhythm/volume of speech Affect: + anxious affect Results & Data Vital Signs (Past 12 Hours) Vital Signs Temp Pulse Pulse Resp BP Pulse Ox 03/27/19 16:06 97/57 L 03/27/19 15:34 36.9 C 87 16 85/64 L 94 03/27/19 11:35 36.6 C 88 19 97/71 L 98 03/27/19 08:45 36.8 C 91 H 16 03/27/19 07:51 37.1 C 90 20 99/64 L 98 Laboratory Results 03/27/19 06:06 03/27/19 06:06 (1) Foot ulcer Laterality: right Non-pressure ulcer stage: unspecified non-pressure ulcer stage Qualified Code(s): L97.519 - Non-pressure chronic ulcer of other part of right foot with unspecified severity
--- NOTE | 2019-03-27 17:28 | Discharge Summary ---
Date of Service March 27, 2019 Admission HPI Per Admitting Provider Patient is a 44 years old male with past medical history of end-stage renal disease on peritoneal dialysis, GERD, acute idiopathic pericarditis, hypertension, COPD, dyslipidemia, hyperparathyroidism, diabetes mellitus type 2, diabetic neuropathy who presents to the emergency room with a complaint of right leg weakness that started after March 09 when patient was transferred to [facility] for a heart catheterization through the groin. The patient states that after the procedure he was unable to fully use his right leg. The patient expresses that he was able to walk normally before the procedure. The patient confirms that he has pain in his right leg and that pain radiates through the right lower extremity. Patient reports that he is feeling right now better than before and movements of his right lower extremities are not changed in the past 3 days. Per patient his last known bili being well was before March 09, 2019 when patient had catheterization of his heart through his right lower extremity. The patient denies fever, chills, chest pain, shortness of breath, abdominal pain, frequency, urgency, syncope or near syncope. Patient has end-stage renal disease and he does peritoneal dialysis 4 times a day for the past 4 years. EKG is reviewed which shows normal sinus rhythm. Echocardiogram from [facility] done March 08, 2019 shows LV ejection fraction of 60 to 64%. No LV segmental wall motion abnormalities. The right ventricular cavity is mildly dilated. The right ventricular systolic function is moderately reduced. There is a large 3 x 1 cm mobile echodensity attached to the mitral valve. It has the appearance of MAC but it is protuberant, mobile and there is severe mitral regurgitation present. This constellation could represent a vegetation. Recommended blood culture and a VIVIANE EEG to assess further. Moderate pulmonary hypertension is present. Outside cardiac catheterization on March 11, 2019 shows the first diagonal has 70% stenosis, and remaining coronaries had mild luminal irregularities. The LVEDP was 22 which is moderately elevated. Head CT shows no acute intracranial abnormality. A 9 mm hypodense focus within the periventricular white matter of the left frontal lobe. This could be due to a focus of them myelination, microvascular ischemic change, or a subacute to chronic infarct. Venous Doppler of the lower extremity shows no DVT within the right lower extremity. Decision was made to admit patient to PCU on telemetry for further evaluation of right lower extremity weakness, acute CVA, and possibly mitral valve vegetation versus autoimmune. Principal Diagnosis Stroke Arterial occlusion Mitral valve lesion and flail leaflet Foot ulcers Uncontrolled type 2 diabetes End-stage renal disease on peritoneal dialysis Discharge Exam In general he is awake and alert pleasant no distress. HEENT normocephalic atraumatic mucous membranes are moist. Breathing is unlabored no accessory muscle use good effort. Skin outside of feetsee belowshow no rashes no pallor or icterus. Neuro shows cranial nerves II through XII be grossly intact, gross motor is intact with the exception of his weak right lower extremity. Sensation is intact although altered in his right lower extremity. His right lower extremity shows shallow ulceration on the dorsum of his foot, left (see yesterday's exam) shows a blackened ulceration at the tip of his fifth toe, and he has scattered other superficial ulcerations. There is no tracking erythema from any of the lesions. I can feel DP pulse on the right leg and he has diminished but present capillary refill. Mental status shows good recent and remote recall normal mood and affect commesurate to the situation good judgment and insight Discharge Data Allergies Allergy/AdvReac Type Severity Reaction Status Date / Time acetaminophen [From Percocet] Allergy Verified 03/25/19 13:01 codeine Allergy Verified 03/25/19 13:01 gemfibrozil [From Lopid] Allergy Verified 03/25/19 13:01 ibuprofen Allergy Verified 03/25/19 13:01 isosorbide Allergy Verified 03/25/19 13:01 lisinopril Allergy Verified 03/25/19 13:01 oxycodone [From Percocet] Allergy Verified 03/25/19 13:01 Penicillins Allergy Unknown Unverified 03/25/19 13:01 Consultations 03/25/19 14:10 ED Decision to Admit Stat 03/25/19 19:09 Consult Case Management - Discharge Planning Routine Consult Neurology Routine 03/26/19 09:29 Consult Cardiology Routine 03/26/19 12:55 Consult Anesthesiology Routine 03/26/19 13:03 Consult Nephrology Routine 03/27/19 07:39 Consult Vascular Surgery Routine 03/27/19 14:34 Burn CD for patient Stat Procedures Performed Operation Date: 03/26/19 14:30 Actual Procedures p Echo Transesophageal - DO jayden Asif Echo Color Flow - DO jayden Asif Echo Doppler Complete - Aquiles Hilliard DO Operation Date: 03/27/19 14:30 <No data on this case meets the specified criteria> Ordered Studies 03/25/19 12:09 US venous doppler LE RT Stat 03/25/19 12:18 CT head/brain wo con Stat 03/25/19 19:09 MR brain wo con Routine 03/25/19 21:35 CT angio head w con Urgent CT angio neck with con Urgent 03/26/19 14:14 US arterial duplex LE RT Routine Hospital Course (1) CVA (cerebral vascular accident): continued evaluation on etiology ongoing -?mitral valve lesion vs other (appreciate neuro thoughts that it would easily be [facility] related) - bihemispheric certainly begs central cause -VIVIANE shows what appears to be more of a calcified mitral valve lesion but also a flail leaflet, blood cultures pending (drawn 03/26/2019) but no growth to date. Has been on empiric ceftriaxone -PT/OT eval and treat (2) Right leg weakness: Due to right leg arterial occlusion. Heparin drip, concern on whether this relates to his heart catheter from a few weeks ago versus embolization from his mitral valve lesion. Vascular surgery evaluation pending. This is been going on for about 2 weeks prior to his current presentation. Fortunately while faint I do feel DP pulse, and while slow he does have cap refill. (3) Foot ulcer: Feet do examined concerning for not only venous stasis ulcers but also (especially his left fifth toe) arterial ulceration. More than likely small vessel disease. Wound consult (may need to work-up left fifth toe further but for now given that it has been in a relatively stable state for the last couple months we will evaluate his more pressing problems above expeditiously and then start to work on the situation with the toe); no cellulitis, so while we have him on antibiotics for the concern on bacteremia, there does not appear to be a pressing need for antibiotics as it relates to any of his ulcerations. Local wound care, serial exams, evaluate for what we may be able to do to help with his vascular risk factors. (4) ESRD (end stage renal disease) on dialysis: Ongoing peritoneal dialysis. (5) Mitral valve disorder: See above discussions. Appears most likely to be calcified lesion. For transfer to [place] for cardiothoracic surgery evaluation. (6) Hypertension: blood pressure meds still on hold - follow closely but with pressures where they're at, continue to hold home meds at this time. (7) COPD (chronic obstructive pulmonary disease): Stable ,continue albuterol inhaler 2 puffs every 6 hours as needed, fluticasone propionate nasal spray 2 sprays daily; will need to investigate further if truly COPD - if so would also bneefit from anti-cholinergic (8) Dyslipidemia: Continue atorvastatin 80 mg p.o. daily. (9) Hypothyroidism: Continue levothyroxine 125 MCG's p.o. daily (10) Type 2 diabetes mellitus: A1c 8.8, we had extensive discussions on the critical need for lifestyle control in the management of type 2 diabetes. Discussing also why to care ("high sugars clog arteries") and the progressive nature of insulin resistance without lifestyle change. (11) Diabetic neuropathy: noted (12) DVT prophylaxis: Heparin drip (13) Discharge planning issues: For transfer to [place] once bed is available. Cardiothoracic surgery accepted in transfer. Input greatly appreciated. Total Time Total Time Spent Total Time Spent (In Minutes): >30 Discharge Plan Discharge Items Patient Disposition: Transfer Acute Care Hospital Reason For Visit: RIGHT LEG WEAKNESS Discharge Diagnosis: CVA, mitral valve lesion, R leg ischemia Activity: Per Instructions section Non-emergency contact: Primary Care Provider and Surgeon Call non-emergency contact if: you have any medication questions Follow-up/Referrals: Hardy Au MD [Primary Care Provider] - Diet: Carb Consistent or DM2 Addtl Attending Provider Instructions: see discharge summary -- care / orders to be assumed on arrival in [place] main open issues: -mitral valve calcified lesion and flail leaflet -- for CT surgery eval on arrival in [place] -- main concern is that this lesion led to strokes and possibly to limb ischemia; not appearing to be infective endocarditis (blood cultures from [facility] reportedly negative when lesion first identified, blood cultures drawn 03/26/19 here showing no growth to date); autoimmune panel sent at admission and still pending -ischemic R leg - does show faint but palpable DP pulse and slow but present cap refill -- for vascular surgery eval and intervention (per pt history this has been going on symptomatically for about 2 weeks prior to presentation for current hospitalization) -uncontrolled DM2 - discussed largely significant role of lifestyle change in the management of this -foot ulcerations - L great toe concerning, other ulcerations on feet appearing more superficial. because L great toe was ongoing for about a month with no worsening, did not yet get surgical evaluation of this - was utilizing local wound care and pt was on antibiotics (rocephin) empirically while following for blood culture growth as relates to vegetation see discharge summary as well for further detail medications in below med rec represent his home medication reconcilliation - MAR from copied chart will reflect current medications (system is extremely difficult to generate a med rec of current inpatient meds) Pending Studies at Discharge: Yes (blood cultures about 30 hours old with no growth to date, immune labs ) Stand-Alone Forms: My [facility] Skilled Items Patient informed of condition?: Yes DNR: No Discharge Level of Care: Other Communicable Disease: No Discharge Prognosis: Other Lines: Peripheral IV Urinary Catheter: No Medications and DC Order Prescriptions: Continued albuterol sulfate 90 mcg/actuation HFA aerosol inhaler 2 puffs INH Q6H PRN (Reason: shortness of breath or wheezing) Qty: 18 RF: 11 fluticasone propionate [Flonase Allergy Relief] 50 mcg/actuation spray,suspension 2 sprays INTNAS DAILY Qty: 54.6 RF: 3 levothyroxine 125 mcg capsule 125 mcg PO DAILY Qty: 90 RF: 3 (DME) OneTouch Ultra Blue Test Strip strip See Rx Instructions .ROUTE .MEDSUPPLY Qty: 300 RF: 3 (DME) lancets [OneTouch Delica Plus Lancet] 33 gauge misc See Rx Instructions .ROUTE .MEDSUPPLY Qty: 300 RF: 3 diltiazem HCl 360 mg capsule,extended release 24 hr 360 mg PO DAILY Qty: 90 RF: 3 zolpidem 5 mg tablet 5 mg PO HS Qty: 90 RF: 3 Novolog Flexpen U-100 Insulin 100 unit/mL (3 mL) insulin pen 50 units SQ BID Qty: 15 RF: 11 furosemide 40 mg tablet 40 mg PO DAILY Qty: 90 RF: 3 cinacalcet [Sensipar] 30 mg tablet 30 mg PO DAILY Qty: 90 RF: 3 esomeprazole magnesium 40 mg capsule,delayed release(DR/EC) 40 mg PO DAILY Qty: 90 RF: 3 hydralazine 50 mg tablet 50 mg PO BID Qty: 180 RF: 3 atorvastatin 80 mg tablet 80 mg PO DAILY Qty: 90 RF: 3 B Complex Plus Vitamin C 57-96-63-5-300 mg capsule 1 cap PO DAILY Qty: 30 RF: 0 (DME) pen needle, diabetic [BD Ultra-Fine Micro Pen Needle] 32 gauge x 1/4" needle See Rx Instructions .ROUTE .MEDSUPPLY Qty: 200 RF: 3 albuterol sulfate [Ventolin HFA] 90 mcg/actuation HFA aerosol inhaler 2 puffs INH Q6H PRN (Reason: shortness of breath or wheezing) Qty: 18 RF: 11 docusate sodium [Colace] 100 mg capsule 100 mg PO DAILY Qty: 30 RF: 0 trazodone 50 mg Tablet 50 mg PO HS PRN (Reason: Sleep) RF: 0 cephalexin 500 mg capsule 500 mg PO DIRECTED RF: 0 Discharge Orders: Discharge Order (Routine); Ordered 03/27/19 Ordered By: Yung Meredith Admission Data Admit Date/Time: 03/25/19 17:40 Attending Provider: Yung Meredith Admit Provider: Sheng Bernal Primary Care Provider: Hardy Au Other Providers: Sheng Bernal ; Val Darden ; Aquiles Hilliard ; Quan Encinas ; Trinidad Kan ; Meir Garcia
[2019-03-27] MEDS: ZOLPIDEM TARTRATE 5 MG TAB PO SCH (21:33)
[2019-03-28 05:28] LABS: Basophils # (auto) 0.07 K/uL (0-0.2); Basophils % (auto) 0.9 %; Eosinophils % (auto) 27.9 %; Hemoglobin 9.6 g/dL (14.0-18.0); Immature Granulocytes # (auto) 0.02 K/uL (0.00-0.02); Immature Granulocytes % (auto) 0.3 %; Lymphocytes # (auto) 0.94 K/uL (1.2-3.4); Lymphocytes % (auto) 11.9 %; Mean Corpuscular Hemoglobin 30.8 pg (25-34); Mean Corpuscular Volume 99.4 fL (80-100); Mean Platelet Volume 10.1 fL (7.4-10.4); Monocytes # (auto) 0.35 K/uL (0.11-0.59); Monocytes % (auto) 4.4 %; Neutrophils # (auto) 4.31 K/uL (1.4-6.5); Neutrophils % (auto) 54.6 %; Nucleated RBC # (auto) 0.02 K/uL (0-0); Nucleated RBC % (auto) 0.2 %; Platelet Count 459 K/uL (130-400); RDW Coefficient of Variation 17.8 % (11.5-14.5); RDW Standard Deviation 62.7 fL (36.4-46.3); Red Blood Count 3.12 M/uL (4.7-6.1); White Blood Count 7.89 K/uL (4.8-10.8)
[2019-03-28 05:40] LABS: Partial Thromboplastin Ratio 1.6; Partial Thromboplastin Time 44.7 Seconds (21.0-31.0)
[2019-03-28] MEDS ORDERED: HEPARIN IV BOLUS 3,000 UNITS in SYRINGE 0 ML IV ONE (05:52)
[2019-03-28 05:55] LABS: BUN Creatinine Ratio 4.3 (10-20); Calcium 8.3 mg/dl (8.5-10.1); Creatinine Clr Calc Pharmacy 6.3 ml/min; Est GFR (African American) 3.7; Est GFR (Non-African American) 3.2; Potassium 4.3 mmol/L (3.5-5.1)
[2019-03-28] MEDS: LEVOTHYROXINE SODIUM 125 MCG TABLET PO SCH (06:20)
[2019-03-28] MEDS: INSULIN DETEMIR FLEXPEN/FLEX TOUCH 100 UNITS/ML 3ML SC SCH ×2 (07:40→20:51)
[2019-03-28] MEDS: VITAMIN B COMPLEX TAB PO SCH (07:40)
[2019-03-28] MEDS: ATORVASTATIN 40 MG TAB PO SCH (07:40)
[2019-03-28] MEDS: DOCUSATE SODIUM 100 MG CAP PO SCH (07:40)
[2019-03-28] MEDS: CLOPIDOGREL BISULFATE 75 MG TAB PO SCH (07:40)
[2019-03-28] MEDS: PANTOprazole 40 MG TAB PO SCH (07:40)
[2019-03-28] MEDS: INSULIN ASPART 100 UNITS/ML 3 ML PEN SC SCH ×4 (07:41→20:51)
[2019-03-28] MEDS: FLUTICASONE PROPIONATE NA SPR 16 GM BTL SCH (07:43)
--- NOTE | 2019-03-28 09:43 | Hospitalist Progress Note ---
Date of Service March 28, 2019 Assessment & Plan (1) CVA (cerebral vascular accident): continued evaluation on etiology ongoing -?mitral valve lesion vs other (appreciate neuro thoughts that it would easily be [facility] related) - bihemispheric certainly begs central cause -VIVIANE shows what appears to be more of a calcified mitral valve lesion but also a flail leaflet, blood cultures pending (drawn 03/26/2019) but no growth to date. Has been on empiric ceftriaxone but this could be stopped in this regard -- continuing due to 5th toe ulcer L foot (see below) -PT/OT eval and treat (2) Right leg weakness: Due to right leg arterial occlusion. Heparin drip, concern on whether this relates to his heart catheter from a few weeks ago versus embolization from his mitral valve lesion. Vascular surgery evaluation pending. This is been going on for about 2 weeks prior to his current presentation. stable exam. anticipate vascular procedure to be timed as it relates w CT surgery (3) Foot ulcer: Feet do examined concerning for not only venous stasis ulcers but also (especially his left fifth toe) arterial ulceration. More than likely small vessel disease. Wound consult (may need to work-up left fifth toe further but for now given that it has been in a relatively stable state for the last couple months we will evaluate his more pressing problems above expeditiously and then start to work on the situation with the toe); while he didn't have tracking cellulitis, the L 5th toe lesion somewhat concerning for osteomyelitis and does look a little better -- whether this relates to topical treatment or abx unclear - continue rocpehin for now (4) ESRD (end stage renal disease) on dialysis: Ongoing peritoneal dialysis. (5) Mitral valve disorder: See above discussions. Appears most likely to be calcified lesion. For transfer to [place] for cardiothoracic surgery evaluation. (6) Hypertension: blood pressure meds still on hold - follow closely but with pressures where they're at, continue to hold home meds at this time. (7) COPD (chronic obstructive pulmonary disease): no sob - Stable ,continue albuterol inhaler 2 puffs every 6 hours as needed, fluticasone propionate nasal spray 2 sprays daily; will need to investi gate further if truly COPD - if so would also bneefit from anti-cholinergic (8) Dyslipidemia: Continue atorvastatin 80 mg p.o. daily. (9) Hypothyroidism: Continue levothyroxine 125 MCG's p.o. daily (10) Type 2 diabetes mellitus: A1c 8.8, 03/27 we had extensive discussions on the critical need for lifestyle control in the management of type 2 diabetes. Discussing also why to care ("high sugars clog arteries") and the progressive nature of insulin resistance without lifestyle change. summarized and reiterated those discussions again today (11) Diabetic neuropathy: noted (12) DVT prophylaxis: Heparin drip (13) Discharge planning issues: For transfer to [place] once bed is available. Cardiothoracic surgery accepted in transfer. Input greatly appreciated. Subjective pt seen multiple times - leg still hurts but about the same as before. foot ulcer hasn't really changed. no chchest pain no sob. a little more down emotionally this morning but on revisit with significant other and family he appears brighter. main complaint is just sore buttocks from bed - nursing got new mattress and on revisit he was feeling better d/w [place] bed control this morning - low hopes but possible for bed late today, more than likely [place] Review of Systems Review of Systems: All systems reviewed & are unremarkable except as noted in HPI & below Physical Exam Physical Exam: gen - aaox3 pleasant nad heent - nc at mmm lungs - unlabored no accessory muscles good effort skin - no rashes no pallor or icterus neuro - no new focal deficits. ongoing identical to previous ext - RLE ongoing diminished but palpable DP pulse, slow but present cap refill; shallow ulcer R foot unchanged no erythema. L foot 5th toe ulcer black as be fore, surrounding exudative changes better now that it's been dressed, no tracking erythema Results & Data Vital Signs (Past 12 Hours) Vital Signs Temp Pulse Pulse Pulse Resp BP Pulse Ox 03/28/19 07:23 97.9 F 91 H 18 115/63 94 03/28/19 04:10 99.3 F 88 18 91/61 L 95 03/28/19 02:00 91 H 03/27/19 23:43 98.6 F 88 17 82/52 L 95 PG Care Time/CCT Total # of Minutes Spent Total Time Spent with Patient: Total time spent is greater than 50% in coordination of care (as documented) at patient's floor/unit and/or counseling patient: (1) Foot ulcer Laterality: right Non-pressure ulcer stage: unspecified non-pressure ulcer stage Qualified Code(s): L97.519 - Non-pressure chronic ulcer of other part of right foot with unspecified severity (2) CVA (cerebral vascular accident) CVA mechanism: unspecified Qualified Code(s): I63.9 - Cerebral infarction, unspecified
--- NOTE | 2019-03-28 11:14 | Pharmacy Report ---
Pharmacy Glycemic Short Note 2 - Date of Service March 28, 2019 - Glycemic Short BSG Results (Last 24 hours): 03/27/19 03/27/19 03/27/19 11:33 16:04 20:18 Glucose POC Glucose 120 H 130 H 171 H 03/28/19 05:11 Glucose 129 H POC Glucose OUTPATIENT ANTIDIABETIC REGIMEN: * Patient states he was not using this * Novolog usually 20-30 SQ BID w/ meals depending on PD infusion he was using (may give up to 50 units per dose if RED 4.25% dex PD solution used) * A1c = 8.8% however pt is ESRD on PD, thus RBC lifespan affected and result is less reliable ASSESSMENT: 03/28 * BSGs well controlled over last 24 hrs with current orders * He was given 33 units of insulin over the last 24 hrs (~60% as basal insulin) and BSGs have ranged 120-185 * CCPD given overnight with alternating 1.5% and 2.5% dex solutions, "fasting" BSG somewhat lower than yesterday's as he had received all 2.5% dex solution the prior night. * Will continue current orders and monitor BSG trends 03/27 * Patient reports PD at home using alternate bags of green (2.5% dex) and red (4.25% dex) throughout the day; He was not performing cyclic overnight PD * He often gave himself 20-30units Novolog twice daily while using this PD r egimen * He was NPO yesterday and received 19 units of SQ insulin with relatively good control * Cyclic PD was admin overnight [id number] yesterday using 2.5% soln * Fasting BSG elevated this AM as a result of overnight PD, "fasting" result not reliable for titrating basal insulin doses. Will rely on total daily insulin requirements instead. * He is now ordered a diet and tolerated both breakfast and lunch today * Will proceed with current insulin regimen as ordered and follow BSG pattern today. * PD is scheduled again this evening starting at 1999 (per patient) 03/26 * Type 2 diabetic admitted for CVA * Patient started on basal / bolus SQ regimen last evening using weight and moderate stress level * Fasting BSG 142 this AM w/ 17 units Levemir on board * Will continue basal regimen this AM per scale due to ongoing NPO status * Novolog CF has performed well - continue the same PLAN FOR INPATIENT GLYCEMIC CONTROL: * Basal insulin * Lantus SQ BID per scale * 0 units if BSG less than 110 * 8 units if BSG 110-180 * 12 units if BSG above 180 * Bolus insulin * NovoLog per scale ACHS * Goal Range: Low 110 mg/dL - High 140 mg/dL * Correction Factor: 25 mg/dL/unit * Nutritional / Prandial insulin per carb ratio of 1 unit per 8 grams CHO consumed PLAN FOR DISCHARGE: * to be determined
--- NOTE | 2019-03-28 12:02 | Cardiology Progress Note ---
Date of Service March 28, 2019 Assessment & Plan (1) CVA (cerebral vascular accident): (2) Femoral artery occlusion, right: (3) Mitral valve disorder: Serial blood cultures remain negative performed at this institution on 03/26/2019, and at [facility] in late February,. I think the likelihood of his mitral valve abnormality being due to active infection is low. Suspect cardioembolic event to the brain either due to embolism of calcified debris from his abnormal atrial valve, or perhaps a superimposed thrombus. Also has right femoral artery occlusion, difficulty determine if this is vascular or cardioembolic. Pending further assessment, patient has been started on unfractioned heparin. Hemoglobin stable today at 9.6 compared to 10.1 yesterday. Systolic blood pressures remained in the 90s, but this appears to be his baseline. Neurology input noted and appreciated. Anticoagulation relatively contraindicated in the setting of infectious endocarditis with cerebral embolic events, patient does not appear to be acutely infected, and given clinical presentation, heparin has been started with caution. Agree with recommendation to obtain DSA (digital subtraction angiography) to determine the presence or absence of mycotic aneurysm prior to consideration of valve surgery. Continue clopidogrel and atorvastatin. Patient with severe mitral regurgitation, believe this is chronic. Is difficult to determine if he is symptomatic from this as it appears his chronic as well as recent activity tolerance is low and he is somewhat sedentary. Disposition: Case discussed with CT surgery at [facility] yesterday, and patient is to be transferred there pending bed availability for CT surgery consultation. Subjective Patient without new complaint. Notes generalized fatigue today. The peritoneal dialysis nurse was assisting him at the time of my interview and exam. Telemetry reveals ongoing sinus rhythm in the mid 80 bpm range, with occasional supraventricular and ventricular ectopy, no atrial fibrillation, no sustained arrhythmia. He notes ongoing mild pain and weakness of his right leg which is unchanged. Physical Exam Physical Exam: Temp Pulse Resp BP Pulse Ox 36.8 C 91 H 18 95/60 L 94 03/28/19 11:39 03/28/19 11:39 03/28/19 11:39 03/28/19 11:39 03/28/19 07:23 Constitutional: WD/WN, vitals as above Respiratory: normal respiratory effort, lungs clear to auscultation Cardiovascular: Rate/Rhythm: regular rhythm Heart Sounds: + murmur (I/ systolic murmur) Extremities: + edema (Trace lower extremity edema) Gastrointestinal (Abdomen): normal bowel sounds, soft, nontender, no hepatosplenomegaly Neurologic: PERRL, EOMI, accommodation nl, no face palsy, no dysarthria Results & Data Vital Signs (Past 12 Hours) Vital Signs Temp Pulse Pulse Pulse Resp BP Pulse Ox 03/28/19 11:39 36.8 C 91 H 18 95/60 L 03/28/19 07:23 36.6 C 91 H 18 115/63 94 03/28/19 04:10 37.4 C 88 18 91/61 L 95 03/28/19 02:00 91 H (1) CVA (cerebral vascular accident) CVA mechanism: unspecified Qualified Code(s): I63.9 - Cerebral infarction, unspecified
[2019-03-28 12:42] LABS: Partial Thromboplastin Ratio 4.1
[2019-03-28 12:45] LABS: Partial Thromboplastin Time 109.9 Seconds (21.0-31.0)
[2019-03-28 13:37] LABS: Anti Nuclear Antibody Screen NEGATIVE (NEGATIVE); B2 Glycoprotein IgA <9 SAU (<=20); B2 Glycoprotein IgG <9 SGU (<=20); B2 Glycoprotein IgM <9 SMU (<=20); Complement C3 127 mg/dL (82-185); Complement Total(CH50) >60 U/mL (31-60); Phosphatidylserine IgG <10 U/mL (<10); Phosphatidylserine IgM 40 U/mL (<25)
[2019-03-28] MEDS: MoRPHine SULFATE 2 MG/ML CARP IV PRN ×2 (13:50→21:59)
[2019-03-28] MEDS: HEPARIN SODIUM/DEXTROSE 25,000 UNITS/500 ML BAG IV SCH (16:59)
[2019-03-28] MEDS ORDERED: COUGH DROP (SUGAR FREE) LOZ 24 LOZ/1 BOX BUCCAL ONE (17:06)
--- NOTE | 2019-03-28 17:58 | Nephrology Progress Note ---
Date of Service March 28, 2019 Assessment & Plan (1) ESRD (end stage renal disease) on dialysis: waiting on bed at [facility] for CT surgery eval >> try to maintain PD while waiting; very high creatinine on admission suggestive of missed dialysis prior to hospital -got 1.1 L off ON -put him on for 10 hrs today, all greens; 4 exchanges -plan for another 14 hours on cycler w/ 6 x 2L exchanges alt 1.5% and 2.5% given relative hypotension -daily bmp, hgb q 24-48 hrs -no indication today for epo; iron stores are low at 10%; consider venofer after 48 hrs negative cxs >>very important to avoid constipation for PD patients : pls cont colace; consider metamucil, miralax; ideally should move bowels daliy (2) Peritoneal dialysis status: see above (3) Foot ulcer: per primary service; elevated inflammatory markers noted; off of abtx now as more vascular etiology favored (4) Mitral valve disorder: for transfer to [facility] for CT surgery; cardiology following; severe m rgg (5) Femoral artery occlusion, right: vascular to see; on heparin gtt w/ caution Present on Admission?: Yes Subjective seen on rounds this am 0910; no sob, no uncontrolled pain; waiting on bed at [facility] Review of Systems Review of Systems: All systems reviewed & are unremarkable except as noted in HPI & below Physical Exam Constitutional: well developed, well nourished and cooperative; no acute distress (lying flat on ra) Eyes: EOM intact bilaterally ENMT: Ears: no external ear abnormality Nose: no external nose abnormality Mouth: + dry oral mucous membranes Neck: no nuchal rigidity Respiratory: normal respiratory effort Auscultation: lungs clear to auscultation bilaterally and + diminished lung sounds Cardiovascular: Rate/Rhythm: regular rate and regular rhythm Heart Sounds: + murmur (LUSB) Extremities: + AV fistula (failed LUE); no edema Gastrointestinal (Abdomen): Inspection/Auscultation: normal bowel sounds Percussion/Palpation: abdomen soft; abdomen nontender Musculoskeletal: Extremities: strength 5/5 throughout Skin: no rashes, warm and dry Neurologic: glass, fluent speech, no tremor Psychiatric: Orientation: alert and oriented x 3 Speech: normal rate/rhythm/volume of speech Affect: + flat affect Results & Data Vital Signs (Past 12 Hours) Vital Signs Temp Pulse Pulse Resp BP Pulse Ox 03/28/19 15:32 36.3 C L 97 H 18 87/63 L 97 03/28/19 11:39 36.8 C 91 H 18 95/60 L 03/28/19 09:30 36.8 C 91 H 18 03/28/19 07:23 36.6 C 91 H 18 115/63 94 Laboratory Results 03/28/19 05:11 03/28/19 05:11 (1) Foot ulcer Laterality: right Non-pressure ulcer stage: unspecified non-pressure ulcer stage Qualified Code(s): L97.519 - Non-pressure chronic ulcer of other part of right foot with unspecified severity
[2019-03-28 20:15] LABS: Partial Thromboplastin Ratio 3.5
[2019-03-28 20:24] LABS: Partial Thromboplastin Time 95.7 Seconds (21.0-31.0)
[2019-03-28] MEDS: ZOLPIDEM TARTRATE 5 MG TAB PO SCH (21:16)
[2019-03-29] MEDS ORDERED: ACETAMINOPHEN 325 MG TAB PO PRN (01:40)
[2019-03-29] MEDS ORDERED: ACETAMINOPHEN 500 MG TAB PO STA (01:52)
[2019-03-29 03:52] LABS: Partial Thromboplastin Ratio 1.7
[2019-03-29 04:05] LABS: Partial Thromboplastin Time 46.8 Seconds (21.0-31.0)
[2019-03-29] MEDS: LEVOTHYROXINE SODIUM 125 MCG TABLET PO SCH (05:47)
[2019-03-29] MEDS: PANTOprazole 40 MG TAB PO SCH (07:30)
[2019-03-29] MEDS: ATORVASTATIN 40 MG TAB PO SCH (07:30)
[2019-03-29] MEDS: VITAMIN B COMPLEX TAB PO SCH (07:30)
[2019-03-29] MEDS: CLOPIDOGREL BISULFATE 75 MG TAB PO SCH (07:30)
[2019-03-29] MEDS: FLUTICASONE PROPIONATE NA SPR 16 GM BTL SCH (07:31)
[2019-03-29] MEDS: DOCUSATE SODIUM 100 MG CAP PO SCH (07:32)
[2019-03-29] MEDS: INSULIN DETEMIR FLEXPEN/FLEX TOUCH 100 UNITS/ML 3ML SC SCH (08:05)
[2019-03-29] MEDS: INSULIN ASPART 100 UNITS/ML 3 ML PEN SC SCH ×2 (08:06→12:05)
--- NOTE | 2019-03-29 09:13 | Billing Data ---
Date of Service March 27, 2019 Coding Level of Care Code 41634 Subseq Hosp Care Lvl 3
--- NOTE | 2019-03-29 09:13 | Billing Data ---
Date of Service March 27, 2019 Coding Level of Care Code 90119 Prolonged Care (int'l)
[2019-03-29] MEDS ORDERED: POLYETHYLENE (MIRALAX) 17 GM PACK PO PRN (09:37)
[2019-03-29] MEDS ORDERED: PSYLLIUM 58.6% POWDER PACKET PO SCH (10:00)
--- NOTE | 2019-03-29 10:13 | Dialysis Progress Note ---
Date of Service March 29, 2019 Assessment & Plan (1) ESRD (end stage renal disease) on dialysis: waiting on bed at [facility] for CT surgery eval >> try to maintain PD while waiting; very high creatinine on admission suggestive of missed dialysis prior to hospital -got 1.1 L off ON into / AM; then 1.1L off yesterday on daylight; finishing -put him on for 10 hrs today, all greens; 4 exchanges -finishing 14 hours on cycler w/ 6 x 2L exchanges alt 1.5% and 2.5% given relative hypotension -plan similar tx tonight -daily bmp, hgb q 24-48 hrs -no indication today for epo; iron stores are low at 10%;will give 200 mg venofer now after 48 hrs negative cxs >>>>needs to move bowels today; very important to avoid constipation for PD patients : pls cont colace; now w/ scheduled metamucil, miralax; ideally should move bowels daliy (2) Peritoneal dialysis status: see above (3) Foot ulcer: per primary service; elevated inflammatory markers noted; off of abtx now as more vascular etiology favored (4) Mitral valve disorder: for transfer to [facility] for CT surgery; cardiology following; severe m rgg (5) Femoral artery occlusion, right: vascular to see; on heparin gtt w/ caution Subjective seen on PD this AM -- comes off late morning; still no word on bed at [facility]; denies n/v; has not had bm yet; no sob; no leg pain; + anxiety Review of Systems Review of Systems: All systems reviewed & are unremarkable except as noted in HPI & below Physical Exam Constitutional: well developed, well nourished and cooperative; no acute distress (sitting up in bed on ra) Eyes: EOM intact bilaterally ENMT: Ears: no external ear abnormality Nose: no external nose abnormality Mouth: + dry oral mucous membranes Neck: no nuchal rigidity Respiratory: normal respiratory effort Auscultation: lungs clear to auscultation bilaterally and + diminished lung sounds Cardiovascular: Rate/Rhythm: regular rate and regular rhythm Heart Sounds: + murmur (LUSB) Extremities: + AV fistula (failed LUE); no edema Gastrointestinal (Abdomen): Inspection/Auscultation: normal bowel sounds Percussion/Palpation: abdomen soft; abdomen nontender PD cath present/hooked to cycler Musculoskeletal: Extremities: strength 5/5 throughout Skin: no rashes, warm and dry Neurologic: glass, fluent speech, no tremor Psychiatric: Orientation: alert and oriented x 3 Speech: normal rate/rhyt hm/volume of speech Affect: + anxious affect and + flat affect Results & Data Vital Signs (Past 12 Hours) Vital Signs Temp Pulse Pulse Pulse Resp BP Pulse Ox 03/29/19 07:30 37.2 C 99 H 18 93/68 L 98 03/29/19 05:46 37.2 C 03/29/19 04:17 102 H 03/29/19 03:16 38.1 C H 97 H 16 104/56 L 92 03/29/19 01:24 38.4 C H 03/29/19 00:04 37.9 C H 98 H 20 88/56 L 92 Laboratory Results 03/28/19 05:11 03/28/19 05:11 (1) Foot ulcer Laterality: right Non-pressure ulcer stage: unspecified non-pressure ulcer stage Qualified Code(s): L97.519 - Non-pressure chronic ulcer of other part of right foot with unspecified severity
[2019-03-29] MEDS ORDERED: IRON SUCROSE 200 MG in 0.9 % SODIUM CHLORIDE 100 ML IV SCH (10:30)
[2019-03-29] MEDS ORDERED: IRON SUCROSE 200 MG in SYRINGE 0 ML IV ONE (11:00)
[2019-03-29] MEDS: POLYETHYLENE (MIRALAX) 17 GM PACK PO SCH ×2 (11:14→13:46)
--- NOTE | 2019-03-29 11:47 | Pharmacy Report ---
Pharmacy Glycemic Short Note 2 - Date of Service March 29, 2019 - Glycemic Short BSG Results (Last 24 hours): 03/28/19 03/28/19 03/29/19 16:30 20:22 07:37 POC Glucose 150 H 119 H 163 H 03/29/19 11:25 POC Glucose 169 H OUTPATIENT ANTIDIABETIC REGIMEN: * Patient states he was not using this * Novolog usually 20-30 SQ BID w/ meals depending on PD infusion he was using (may give up to 50 units per dose if RED 4.25% dex PD solution used) * A1c = 8.8% however pt is ESRD on PD, thus RBC lifespan affected and result is less reliable ASSESSMENT: 03/29 * BSGs acceptable with current insulin orders * CPPD Rx tonight will again be 1.5% alt with 2.5% dex solution 03/28 * BSGs well controlled over last 24 hrs with current orders * He was given 33 units of insulin over the last 24 hrs (~60% as basal insulin) and BSGs have ranged 120-185 * CCPD given overnight with alternating 1.5% and 2.5% dex solutions, "fasting" BSG somewhat lower than yesterday's as he had received all 2.5% dex solution the prior night. * Will continue current orders and monitor BSG trends 03/27 * Patient reports PD at home using alternate bags of green (2.5% dex) and red (4.25% dex) throughout the day; He was not performing cyclic overnight PD * He often gave himself 20-30units Novolog twice daily while using this PD regimen * He was NPO yesterday and received 19 units of SQ insulin with relatively good control * Cyclic PD was admin overnight [id number] yesterday using 2.5% soln * Fasting BSG elevated this AM as a result of overnight PD, "fasting" result not reliable for titrating basal insulin doses. Will rely on total daily insulin requirements instead. * He is now ordered a diet and tolerated both breakfast and lunch today * Will proceed with current insulin regimen as ordered and follow BSG pattern today. * PD is scheduled again this evening starting at 1999 (per patient) 03/26 * Type 2 diabetic admitted for CVA * Patient started on basal / bolus SQ regimen last evening using weight and moderate stress level * Fasting BSG 142 this AM w/ 17 units Levemir on board * Will continue basal regimen this AM per scale due to ongoing NPO status * Novolog CF has performed well - continue the same PLAN FOR INPATIENT GLYCEMIC CONTROL: * Basal insulin * Lantus SQ BID per scale * 0 units if BSG less than 110 * 8 units if BSG 110-180 * 12 units if BSG above 180 * Bolus insulin * NovoLog per scale ACHS * Goal Range: Low 110 mg/dL - High 140 mg/dL * Correction Factor: 25 mg/dL/unit * Nutritional / Prandial insulin per carb ratio of 1 unit per 8 grams CHO consumed PLAN FOR DISCHARGE: * to be determined
[2019-03-29] MEDS: MoRPHine SULFATE 2 MG/ML CARP IV PRN (15:53)
[2019-03-29] MEDS: HEPARIN SODIUM/DEXTROSE 25,000 UNITS/500 ML BAG IV SCH (15:54)
--- NOTE | 2019-03-29 16:02 | Hospitalist Progress Note ---
Date of Service March 29, 2019 Assessment & Plan (1) CVA (cerebral vascular accident): continued evaluation on etiology ongoing -?mitral valve lesion vs other (appreciate neuro thoughts that it would easily be [facility] related) - bihemispheric certainly begs central cause -VIVIANE shows what appears to be more of a calcified mitral valve lesion but also a flail leaflet, blood cultures pending (drawn 03/26/2019) but no growth to date. Had been on empiric ceftriaxone for 48 hours, stopped once cultures were negative, see below as it relates to ongoing antibiotics for his foot. -PT/OT eval and treat (2) Right leg weakness: Due to right leg arterial occlusion. Heparin drip, concern on whether this relates to his heart catheter from a few weeks ago versus embolization from his mitral valve lesion. Vascular surgery evaluation pending. This is been going on for about 2 weeks prior to his current presentation. Fortunately he continues to show a stable exam. anticipate vascular procedure to be timed as it relates w CT surgery (3) Foot ulcer: Feet do examined concerning for not only venous stasis ulcers but also (especially his left fifth toe) arterial ulceration. More than likely small vessel disease. Wound consult (may need to work-up left fifth toe further but for now given that it has been in a relatively stable state for the last couple months we will evaluate his more pressing problems above expeditiously and then start to work on the situation with the toe); while he didn't have tracking cellulitis, the L 5th toe lesion somewhat concerning for osteomyelitis and does look a little better -- whether this relates to topical treatment or abx unclear -had been on Rocephin for empiric treatment while endocarditis is being ruled outfor now we will switch to oral Keflex (4) ESRD (end stage renal disease) on dialysis: Ongoing peritoneal dialysis. (5) Mitral valve disorder: See above discussions. Appears most likely to be calcified lesion. For transfer to [place] for cardiothoracic surgery evaluation once he has an available bed. (6) Hypertension: blood pressure meds still on hold - follow closely but with pressures where they're at, if he is running a little on the low side, but he has been generally stable in this regard. (7) COPD (chronic obstructive pulmonary disease): no sob - Stable ,continue albuterol inhaler 2 puffs every 6 hours as needed, fluticasone propionate nasal spray 2 sprays daily; will need to investigate further if truly COPD - if so would also bneefit from anti- cholinergic (8) Dyslipidemia: Continue atorvastatin 80 mg p.o. daily. (9) Hypothyroidism: Continue levothyroxine 125 MCG's p.o. daily (10) Type 2 diabetes mellitus: A1c 8.8, 03/27 we had extensive discussions on the critical need for lifestyle control in the management of type 2 diabetes. Discussing also why to care ("high sugars clog arteries") and the progressive nature of insulin resistance without lifestyle change. summarized and reiterated those discussions again on 03/28 (11) Diabetic neuropathy: noted (12) DVT prophylaxis: Heparin drip (13) Discharge planning issues: For transfer to [place] once bed is available. Cardiothoracic surgery acc epted in transfer. Input greatly appreciated. Subjective Tired, resting, but no new complaints. Leg feels the same. No other new issues. Still waiting on bed at [facility]. Review of Systems Review of Systems: All systems reviewed & are unremarkable except as noted in HPI & below Physical Exam Physical Exam: In general he is awake and alert, fatigued but no distress. HEENT normocephalic atraumatic mucous membranes are moist. Breathing is unlabored no accessory muscle use good effort. Skin shows no rashes no pallor or icterussee extremities otherwise for below. Neuro shows no focal deficits that are new. Extremities show his right lower extremity to have ongoing mild degree of pallor, no tracking erythema, no cyanosisessentially exam has been unchanged for days. Results & Data Vital Signs (Past 12 Hours) Vital Signs Temp Pulse Pulse Pulse Resp BP Pulse Ox 03/29/19 15:35 98.8 F 95 H 17 97/64 L 96 03/29/19 11:58 98.8 F 95 H 18 96/67 L 96 03/29/19 07:30 99.0 F 99 H 18 93/68 L 98 03/29/19 05:46 99.0 F 03/29/19 04:17 102 H PG Care Time/CCT Total # of Minutes Spent Total Time Spent with Patient: Total time spent is greater than 50% in coordination of care (as documented) at patient's floor/unit and/or counseling patient: (1) CVA (cerebral vascular accident) CVA mechanism: unspecified Qualified Code(s): I63.9 - Cerebral infarction, unspecified (2) Foot ulcer Laterality: right Non-pressure ulcer stage: unspecified non-pressure ulcer stage Qualified Code(s): L97.519 - Non-pressure chronic ulcer of other part of right foot with unspecified severity
[2019-03-29] MEDS ORDERED: STROKE PATIENT DISCHARGE STA (16:41)
--- NOTE | 2019-03-29 16:43 | Discharge Summary ---
Date of Service March 29, 2019 Admission HPI Per Admitting Provider Patient is a 44 years old male with past medical history of end-stage renal disease on peritoneal dialysis, GERD, acute idiopathic pericarditis, hypertension, COPD, dyslipidemia, hyperparathyroidism, diabetes mellitus type 2, diabetic neuropathy who presents to the emergency room with a complaint of right leg weakness that started after March 09 when patient was transferred to [facility] for a heart catheterization through the groin. The patient states that after the procedure he was unable to fully use his right leg. The patient expresses that he was able to walk normally before the procedure. The patient confirms that he has pain in his right leg and that pain radiates through the right lower extremity. Patient reports that he is feeling right now better than before and movements of his right lower extremities are not changed in the past 3 days. Per patient his last known bili being well was before March 09, 2019 when patient had catheterization of his heart through his right lower extremity. The patient denies fever, chills, chest pain, shortness of breath, abdominal pain, frequency, urgency, syncope or near syncope. Patient has end-stage renal disease and he does peritoneal dialysis 4 times a day for the past 4 years. EKG is reviewed which shows normal sinus rhythm. Echocardiogram from [facility] done March 08, 2019 shows LV ejection fraction of 60 to 64%. No LV segmental wall motion abnormalities. The right ventricular cavity is mildly dilated. The right ventricular systolic function is moderately reduced. There is a large 3 x 1 cm mobile echodensity attached to the mitral valve. It has the appearance of MAC but it is protuberant, mobile and there is severe mitral regurgitation present. This constellation could represent a vegetation. Recommended blood culture and a VIVIANE EEG to assess further. Moderate pulmonary hypertension is present. Outside cardiac catheterization on March 11, 2019 shows the first diagonal has 70% stenosis, and remaining coronaries had mild luminal irregularities. The LVEDP was 22 which is moderately elevated. Head CT shows no acute intracranial abnormality. A 9 mm hypodense focus within the periventricular white matter of the left frontal lobe. This could be due to a focus of them myelination, microvascular ischemic change, or a subacute to chronic infarct. Venous Doppler of the lower extremity shows no DVT within the right lower extremity. Decision was made to admit patient to PCU on telemetry for further evaluation of right lower extremity weakness, acute CVA, and possibly mitral valve vegetation versus autoimmune. Discharge Exam see today's progress note Discharge Data Allergies Allergy/AdvReac Type Severity Reaction Status Date / Time acetaminophen [From Percocet] Allergy Verified 03/25/19 13:01 codeine Allergy Verified 03/25/19 13:01 gemfibrozil [From Lopid] Allergy Verified 03/25/19 13:01 ibuprofen Allergy Verified 03/25/19 13:01 isosorbide Allergy Verified 03/25/19 13:01 lisinopril Allergy Verified 03/25/19 13:01 oxycodone [From Percocet] Allergy Verified 03/25/19 13:01 Penicillins Allergy Unknown Unverified 03/25/19 13:01 Consultations 03/25/19 14:10 ED Decision to Admit Stat 03/25/19 19:09 Consult Case Management - Discharge Planning Routine Consult Neurology Routine 03/26/19 09:29 Consult Cardiology Routine 03/26/19 12:55 Consult Anesthesiology Routine 03/26/19 13:03 Consult Nephrology Routine 03/27/19 07:39 Consult Vascular Surgery Routine 03/27/19 14:34 Burn CD for patient Stat Procedures Performed Operation Date: 03/26/19 14:30 Actual Procedures p Echo Transesophageal - DO jayden Asif Echo Color Flow - DO jayden Asif Echo Doppler Complete - Aquiles Hilliard DO Operation Date: 03/27/19 14:30 <No data on this case meets the specified criteria> Ordered Studies 03/25/19 12:09 US venous doppler LE RT Stat 03/25/19 12:18 CT head/brain wo con Stat 03/25/19 19:09 MR brain wo con Routine 03/25/19 21:35 CT angio head w con Urgent CT angio neck with con Urgent 03/26/19 14:14 US arterial duplex LE RT Routine Hospital Course (1) CVA (cerebral vascular accident): continued evaluation on etiology ongoing -?mitral valve lesion vs other (appreciate neuro thoughts that it would easily be [facility] related) - bihemispheric certainly begs central cause -VIVIANE shows what appears to be more of a calcified mitral valve lesion but also a flail leaflet, blood cultures pending (drawn 03/26/2019) but no growth to date. Had been on empiric ceftriaxone for 48 hours, stopped once cultures were negative, see below as it relates to ongoing antibiotics for his foot. -PT/OT eval and treat (2) Right leg weakness: Due to right leg arterial occlusion. Heparin drip, concern on whether this relates to his heart catheter from a few weeks ago versus embolization from his mitral valve lesion. Vascular surgery evaluation pending. This is been going on for about 2 weeks prior to his current presentation. Fortunately he continues to show a stable exam. anticipate vascular procedure to be timed as it relates w CT surgery (3) Foot ulcer: Feet do examined concerning for not only venous stasis ulcers but also (especially his left fifth toe) arterial ulceration. More than likely small vessel disease. Wound consult (may need to work-up left fifth toe further but for now given that it has been in a relatively stable state for the last couple months we will evaluate his more pressing problems above expeditiously and then start to work on the situation with the toe); while he didn't have tracking cellulitis, the L 5th toe lesion somewhat concerning for osteomyelitis and does look a little better -- whether this relates to topical treatment or abx unclear -had been on Rocephin for empiric treatment while endocarditis is being ruled outfor now we will switch to oral Keflex (4) ESRD (end stage renal disease) on dialysis: Ongoing peritoneal dialysis. (5) Mitral valve disorder: See above discussions. Appears most likely to be calcified lesion. For transfer to [place] for cardiothoracic surgery evaluation once he has an available bed. (6) Hypertension: blood pressure meds still on hold - follow closely but with pressures where they're at, if he is running a little on the low side, but he has been generally stable in this regard. (7) COPD (chronic obstructive pulmonary disease): no sob - Stable ,continue albuterol inhaler 2 puffs every 6 hours as needed, fluticasone propionate nasal spray 2 sprays daily; will need to investigate further if truly COPD - if so would also bneefit from anti- cholinergic (8) Dyslipidemia: Continue atorvastatin 80 mg p.o. daily. (9) Hypothyroidism: Continue levothyroxine 125 MCG's p.o. daily (10) Type 2 diabetes mellitus: A1c 8.8, 03/27 we had extensive discussions on the critical need for lifestyle control in the management of type 2 diabetes. Discussing also why to care ("high sugars clog arteries") and the progressive nature of insulin resistance without lifestyle change. summarized and reiterated those discussions again on 03/28 (11) Diabetic neuropathy: noted (12) DVT prophylaxis: Heparin drip (13) Discharge planning issues: For transfer to [place] today - cardiothoracic and vascular surgery evaluations on arrival. Discharge Plan Discharge Items Patient Disposition: Transfer Acute Care Hospital Reason For Visit: RIGHT LEG WEAKNESS Discharge Diagnosis: CVA, mitral valve lesion, R leg ischemia Activity: Per Instructions section Non-emergency contact: Primary Care Provider and Surgeon Call non-emergency contact if: you have any medication questions Follow-up/Referrals: Hardy Au MD [Primary Care Provider] - Diet: Carb Consistent or DM2 Addtl Attending Provider Instructions: see discharge summary -- care / orders to be assumed on arrival in [place] main open issues: -mitral valve calcified lesion and flail leaflet -- for CT surgery eval on arrival in [place] -- main concern is that this lesion led to strokes and possibly to limb ischemia; not appearing to be infective endocarditis (blood cultures from [facility] reportedly negative when lesion first identified, blood cultures drawn 03/26/19 here showing no growth to date); autoimmune panel sent at admission and still pending -ischemic R leg - does show faint but palpable DP pulse and slow but present cap refill -- for vascular surgery eval and intervention (per pt history this has been going on symptomatically for about 2 weeks prior to presentation for current hospitalization) -uncontrolled DM2 - discussed largely significant role of lifestyle change in the management of this -foot ulcerations - L great toe concerning, other ulcerations on feet appearing more superficial. because L great toe was ongoing for about a month with no worsening, did not yet get surgical evaluation of this - was utilizing local wound care and pt was on antibiotics (rocephin) empirically while following for blood culture growth as relates to vegetation see discharge summary as well for further detail medications in below med rec represent his home medication reconcilliation - MAR from copied chart will reflect current medications (system is extremely difficult to generate a med rec of current inpatient meds) Pending Studies at Discharge: Yes (blood cultures about 30 hours old with no growth to date, immune labs ) Stand-Alone Forms: My [facility] Skilled Items Patient informed of condition?: Yes DNR: No Discharge Level of Care: Other Communicable Disease: No Discharge Prognosis: Other Lines: Peripheral IV Urinary Catheter: No Medications and DC Order Prescriptions: Continued albuterol sulfate 90 mcg/actuation HFA aerosol inhaler 2 puffs INH Q6H PRN (Reason: shortness of breath or wheezing) Qty: 18 RF: 11 fluticasone propionate [Flonase Allergy Relief] 50 mcg/actuation spray,suspension 2 sprays INTNAS DAILY Qty: 54.6 RF: 3 levothyroxine 125 mcg capsule 125 mcg PO DAILY Qty: 90 RF: 3 (DME) OneTouch Ultra Blue Test Strip strip See Rx Instructions .ROUTE .MEDSUPPLY Qty: 300 RF: 3 (DME) lancets [OneTouch Delica Plus Lancet] 33 gauge misc See Rx Instructions .ROUTE .MEDSUPPLY Qty: 300 RF: 3 diltiazem HCl 360 mg capsule,extended release 24 hr 360 mg PO DAILY Qty: 90 RF: 3 zolpidem 5 mg tablet 5 mg PO HS Qty: 90 RF: 3 Novolog Flexpen U-100 Insulin 100 unit/mL (3 mL) insulin pen 50 units SQ BID Qty: 15 RF: 11 furosemide 40 mg tablet 40 mg PO DAILY Qty: 90 RF: 3 cinacalcet [Sensipar] 30 mg tablet 30 mg PO DAILY Qty: 90 RF: 3 esomeprazole magnesium 40 mg capsule,delayed release(DR/EC) 40 mg PO DAILY Qty: 90 RF: 3 hydralazine 50 mg tablet 50 mg PO BID Qty: 180 RF: 3 atorvastatin 80 mg tablet 80 mg PO DAILY Qty: 90 RF: 3 B Complex Plus Vitamin C [id number] mg capsule 1 cap PO DAILY Qty: 30 RF: 0 (DME) pen needle, diabetic [BD Ultra-Fine Micro Pen Needle] 32 gauge x 1/4" needle See Rx Instructions .ROUTE .MEDSUPPLY Qty: 200 RF: 3 albuterol sulfate [Ventolin HFA] 90 mcg/actuation HFA aerosol inhaler 2 puffs INH Q6H PRN (Reason: shortness of breath or wheezing) Qty: 18 RF: 11 docusate sodium [Colace] 100 mg capsule 100 mg PO DAILY Qty: 30 RF: 0 trazodone 50 mg Tablet 50 mg PO HS PRN (Reason: Sleep) RF: 0 cephalexin 500 mg capsule 500 mg PO DIRECTED RF: 0 Discharge Orders: Discharge Order (Routine); Ordered 03/27/19 Ordered By: Yung Meredith Admission Data Admit Date/Time: 03/25/19 17:40 Attending Provider: Yung Meredith Admit Provider: Sheng Bernal Primary Care Provider: Hardy Au Other Providers: Sheng Bernal ; Val Darden ; Aquiles Hilliard ; Quan Encinas ; Trinidad Kan ; Meir Garcia
[2019-03-29] MEDS ORDERED: cephALEXin 500 MG CAP PO SCH (21:00)
--- NOTE | 2019-04-01 08:59 | Consultation ---
Date of Consultation April 01, 2019 History of Present Illness Attending Physician: Yung Meredith DO History of Present Illness Patient was to be transferred to acute care facility. Our service was told we did not have to see the patient due to the transfer. Allergies Allergy/AdvReac Type Severity Reaction Status Date / Time acetaminophen [From Percocet] Allergy Verified 03/25/19 13:01 codeine Allergy Verified 03/25/19 13:01 gemfibrozil [From Lopid] Allergy Verified 03/25/19 13:01 ibuprofen Allergy Verified 03/25/19 13:01 isosorbide Allergy Verified 03/25/19 13:01 lisinopril Allergy Verified 03/25/19 13:01 oxycodone [From Percocet] Allergy Verified 03/25/19 13:01 Penicillins Allergy Unknown Unverified 03/25/19 13:01 Home Medications Home Medications Medication Instructions Recorded Confirmed Type albuterol sulfate 90 mcg/actuation 2 puffs INH Q6H PRN #18 gm 03/21/19 03/25/19 Rx aerosol inhaler albuterol sulfate 90 mcg/actuation 2 puffs INH Q6H PRN #18 gm 03/21/19 03/25/19 Rx aerosol inhaler atorvastatin 80 mg tablet 80 mg PO DAILY #90 tab 03/21/19 03/25/19 Rx blood sugar diagnostic #300 ea 03/21/19 03/25/19 Rx cinacalcet 30 mg tablet 30 mg PO DAILY #90 tab 03/21/19 03/25/19 Rx diltiazem HCl 360 mg capsule,24 360 mg PO DAILY #90 cap 03/21/19 03/25/19 Rx hr,extended release docusate sodium 100 mg capsule 100 mg PO DAILY #30 cap 03/21/19 03/25/19 Rx esomeprazole magnesium 40 mg 40 mg PO DAILY #90 cap 03/21/19 03/25/19 Rx capsule,delayed release fluticasone propionate 50 2 sprays INTNAS DAILY #54.6 ml 03/21/19 03/25/19 Rx mcg/actuation nasal spray,suspension furosemide 40 mg tablet 40 mg PO DAILY #90 tab 03/21/19 03/25/19 Rx hydralazine 50 mg tablet 50 mg PO BID #180 tab 03/21/19 03/25/19 Rx insulin aspart U-100 100 unit/mL 50 units SQ BID #15 ml 03/21/19 03/25/19 Rx (3 mL) subcutaneous pen lancets 33 gauge #300 ea 03/21/19 03/25/19 Rx levothyroxine 125 mcg capsule 125 mcg PO DAILY #90 cap 03/21/19 03/25/19 Rx pen needle, diabetic 32 gauge x #200 ea 03/21/19 03/25/19 Rx /" vitamin B comp and C no.3 15 mg-10 1 cap PO DAILY #30 cap 03/21/19 03/25/19 Rx mg-50 mg-5 mg-300 mg capsule zolpidem 5 mg tablet 5 mg PO HS #90 tab 03/21/19 03/25/19 Rx cephalexin 500 mg PO DIRECTED 03/25/19 03/25/19 History trazodone 50 mg PO HS PRN 03/25/19 03/25/19 History Patient History Medical History Acute idiopathic pericarditis Charcot foot due to diabetes mellitus COPD (chronic obstructive pulmonary disease) Diabetic neuropathy Dyslipidemia ESRD (end stage renal disease) on dialysis GERD (gastroesophageal reflux disease) Hyperkalemia Hyperparathyroidism Hypertension Hypothyroidism Peritoneal dialysis status Type 2 diabetes mellitus Surgical History History of cardiac cath Injection of surface of eye Retinal detachment Family History Father Alcohol abuse Diabetes Mother Diabetes Heart disease Social History Preferred Language: Syriac Communication Ability: Effective Field Inspector Required: No Beliefs That Will Affect Care: None Current Living Situation: Significant Other Feels Safe at Home: Yes Smoking Status: Never smoker Hx Alcohol Use: No Hx Substance Use: No
== END 2019-03-29 17:20 | disposition short-term general hospital (02) | DRG 64 ==
LOC: ED 11:46 → 2E 17:40 → SUATTDRO 17:40 → 2E 18:05